=== PATIENT | male | born 1955 | race Caucasian/White ===

== ENCOUNTER → 2020-08-11 | Outpatient (CLI) | payer MEDICARE, OTHER ==
[2020-08-11 14:43] LABS: Microalb/Creat Ratio UR, Rand Unable to Calculate mg/g (0.000-30.000); Microalbumin, Random Urine <5.000 mg/L (0.000-20.000)
== END | disposition home or self-care (01) ==
LOC: LAB SHORT 09:31 → LAB EV 09:31
PROVIDERS: Family Medicine
DX: E11.69 Type 2 diabetes mellitus with other specified complication (principal)
CPT/HCPCS: 82043; 82570

== ENCOUNTER 2020-12-07 09:42 | Day surgery (SDC) | payer MEDICARE, OTHER ==
[~2020-12-07] VITALS: Ht 182.9 cm; Wt 95.4 kg
[~2020-12-07 09:42] MED LIST: CYCL10 PO; DOXA4 PO; GABA600 PO; HUMALOG KW100 UNIT/1 SC; LANTUS SOL100 UNIT/1 SC; METFORMIN ER G500 MG PO; ROSU10TA PO; Requip3 MG PO
--- NOTE | 2020-12-07 12:05 | NUR ---
12/07/20 1205 Caroline Maurice ARM PREPPED BY [facility].FELY Wbeb ARM PREPPED BY [facility].ADRIEL
== END 2020-12-07 13:35 | disposition home or self-care (01) ==
LOC: ORSCSDS 09:42
PROVIDERS: Orthopaedic Surgery
PROC: 01N40ZZ Release Ulnar Nerve, Open Approach (ICD-10-PCS; principal; 2020-12-07 11:00)
DX: G56.22 Lesion of ulnar nerve, left upper limb (principal); G56.21 Lesion of ulnar nerve, right upper limb; E11.9 Type 2 diabetes mellitus without complications; Z79.899 Other long term (current) drug therapy; M79.7 Fibromyalgia; Z79.84 Long term (current) use of oral hypoglycemic drugs
CPT/HCPCS: 82947; J0171; J0690; J1815; J2250; J2370; J2405; J2704; J3010; J7120

== ENCOUNTER → 2021-06-17 | Outpatient (CLI) | payer MEDICARE, OTHER ==
[2021-06-17 13:05] LABS: BASOPHILS ABSOLUTE AUTO 0.04 K/mm3 (0.00-0.23); BASOPHILS PERCENT AUTO 0 % (0-2); EOSINOPHILS ABSOLUTE AUTO 0.29 K/mm3 (0.00-0.68); EOSINOPHILS PERCENT AUTO 3 % (0-6); Hemoglobin 15.9 g/dL (13.5-17.5); IMMATURE GRAN ABSOLUTE AUTO 0.03 K/mm3 (0.00-0.10); IMMATURE GRAN PERCENT AUTO 0 % (0-1); LYMPHOCYTES ABSOLUTE AUTO 2.01 K/mm3 (0.84-5.20); LYMPHOCYTES PERCENT AUTO 22 % (21-46); MONOCYTES ABSOLUTE AUTO 0.73 K/mm3 (0.16-1.47); MONOCYTES PERCENT AUTO 8 % (4-13); Mean Corpuscular HGB Conc 33.1 g/dL (31.5-36.5); Mean Corpuscular Volume 91 fL (80-100); Mean Platelet Volume 11.1 fL (9.1-12.4); NEUTROPHILS ABSOLUTE AUTO 6.17 K/mm3 (1.96-9.15); NEUTROPHILS PERCENT AUTO 67 % (41-73); Platelet Count 164 K/mm3 (150-400); RDW Coefficient Variation 13.9 % (11.7-14.2); RDW Standard Deviation 46.7 fL (35.1-46.3); White Blood Cell Count 9.27 K/mm3 (4.00-11.30)
[2021-06-17 13:39] LABS: Anion Gap 6 mmol/L (6-16); Blood Urea Nitrogen 15 mg/dL (8-24); Bun/Creatinine Ratio 16.6 (12.0-20.0); CO2, Blood 25 mmol/L (21-32); Calcium, Blood 8.9 mg/dL (8.5-10.1); Chloride, Blood 107 mmol/L (98-108); Creatinine, Blood 0.91 mg/dL (0.60-1.20); Glomerular Filtration Rate >60 (60-); Glucose, Blood 161 mg/dL (70-99); Potassium, Blood 4.2 mmol/L (3.5-5.5); Sodium, Blood 138 mmol/L (136-145)
== END | disposition home or self-care (01) ==
LOC: LAB 11:57 → LAB SHORT 11:57
PROVIDERS: Orthopaedic Surgery
DX: Z01.812 Encounter for preprocedural laboratory examination (principal); M65.322 Trigger finger, left index finger
CPT/HCPCS: 36415; 80048; 83036; 85025

== ENCOUNTER 2021-06-28 10:58 | Day surgery (SDC) | payer MEDICARE, OTHER ==
[~2021-06-28] VITALS: Ht 182.9 cm; Wt 93.7 kg
== END 2021-06-28 14:52 | disposition home or self-care (01) ==
LOC: ORSCSDS 10:58
PROVIDERS: Orthopaedic Surgery
PROC: 0LN80ZZ Release Left Hand Tendon, Open Approach (ICD-10-PCS; principal; 2021-06-28 12:15)
DX: M65.322 Trigger finger, left index finger (principal); E11.9 Type 2 diabetes mellitus without complications; Z79.84 Long term (current) use of oral hypoglycemic drugs; Z79.899 Other long term (current) drug therapy
CPT/HCPCS: 82947; J0171; J0690; J2250; J2704; J3010; J7120

== ENCOUNTER → 2022-04-22 | Outpatient (CLI) | payer MEDICARE ==
[2022-04-22 11:56] LABS: Microalb/Creat Ratio UR, Rand Unable to Calculate mg/g (0.000-30.000); Microalbumin, Random Urine <5.000 mg/L (0.000-20.000)
== END | disposition home or self-care (01) ==
LOC: LAB 09:57 → LAB SHORT 09:57
PROVIDERS: Family Medicine
DX: E11.69 Type 2 diabetes mellitus with other specified complication (principal)
CPT/HCPCS: 82043; 82570

== ENCOUNTER 2022-09-30 15:49 | Inpatient (IN) | payer MEDICARE ==
[~2022-09-30] VITALS: Ht 182.9 cm; Wt 91.5 kg
[~2022-09-30 15:49] MED LIST changes: +GLUCOPHAGE1000 M1 PO; -HUMALOG KW100 UNIT/1 SC; -METFORMIN ER G500 MG PO; +ROPI.25 PO; -Requip3 MG PO
[2022-09-30 17:27] LABS: BASOPHILS ABSOLUTE AUTO 0.05 K/mm3 (0.00-0.23); BASOPHILS PERCENT AUTO 1 % (0-2); EOSINOPHILS ABSOLUTE AUTO 0.01 K/mm3 (0.00-0.68); EOSINOPHILS PERCENT AUTO 0 % (0-6); Hematocrit 40.4 % (37.0-53.0); Hemoglobin 14.5 g/dL (13.5-17.5); IMMATURE GRAN ABSOLUTE AUTO 0.07 K/mm3 (0.00-0.10); IMMATURE GRAN PERCENT AUTO 1 % (0-1); LYMPHOCYTES PERCENT AUTO 2 % (21-46); MONOCYTES ABSOLUTE AUTO 0.33 K/mm3 (0.16-1.47); MONOCYTES PERCENT AUTO 4 % (4-13); Mean Corpuscular HGB 30.5 pg (26.0-34.0); Mean Corpuscular HGB Conc 35.9 g/dL (31.5-36.5); Mean Corpuscular Volume 85 fL (80-100); Mean Platelet Volume 11.5 fL (9.1-12.4); NEUTROPHILS ABSOLUTE AUTO 8.54 K/mm3 (1.96-9.15); NEUTROPHILS PERCENT AUTO 93 % (41-73); RDW Coefficient Variation 13.2 % (11.7-14.2); RDW Standard Deviation 41.3 fL (35.1-46.3); Red Blood Cell Count 4.76 M/mm3 (4.30-5.90)
[2022-09-30 17:47] LABS: Platelet Count 45 K/mm3 (150-400)
[2022-09-30 17:51] LABS: Albumin/Globulin Ratio 0.8 (0.8-1.8); Bilirubin, Total 3.4 mg/dL (0.1-1.0); Bun/Creatinine Ratio 40.2 (12.0-20.0); Calcium, Blood 8.5 mg/dL (8.5-10.1); Creatinine, Blood 1.07 mg/dL (0.60-1.20); Globulin, Blood 3.9 g/dL (2.2-4.0); Potassium, Blood 3.9 mmol/L (3.5-5.5); Total Protein, Blood 6.9 g/dL (6.4-8.2)
[2022-09-30 18:07] LABS: Influenza A, PCR NEGATIVE (NEGATIVE); Influenza B, PCR NEGATIVE (NEGATIVE); Resp Syncytial Virus, PCR NEGATIVE (NEGATIVE); SARS-Cov-2 (COVID-19) PCR, MMC NEGATIVE (NEGATIVE)
[2022-09-30 20:02] LABS: Source, Urine Clean Catch
[2022-09-30 20:11] LABS: Appearance, Urine Turbid (Clear); Blood, Urine 5+ (Neg); Color, Urine Brown (P-Yellow); Glucose Qualitative, Urine 4+ (Neg); Ketones, Urine 3+ (Neg); Leukocyte Esterase, Urine 1+ (Neg); Nitrite, Urine Pos (Neg); Protein, Urine 3+ (Neg); Urobilinogen, Urine 3+ (Normal)
[2022-09-30 20:21] LABS: Bilirubin, Urine 2+ (Neg)
[2022-09-30 20:22] LABS: Squamous Epithelial Cells Rare /hpf (Few)
[2022-09-30 20:23] LABS: Bacteria Many /hpf
[2022-10-01 01:07] LABS: Hematocrit 35.2 % (37.0-53.0); Hemoglobin 12.9 g/dL (13.5-17.5); Mean Corpuscular HGB 31.2 pg (26.0-34.0); Mean Corpuscular HGB Conc 36.6 g/dL (31.5-36.5); Mean Corpuscular Volume 85 fL (80-100); Mean Platelet Volume 11.9 fL (9.1-12.4); RDW Coefficient Variation 13.2 % (11.7-14.2); RDW Standard Deviation 41.1 fL (35.1-46.3); Red Blood Cell Count 4.14 M/mm3 (4.30-5.90); White Blood Cell Count 5.72 K/mm3 (4.00-11.30)
[2022-10-01 01:27] LABS: Albumin, Blood 2.3 g/dL (3.4-5.0); Albumin/Globulin Ratio 0.7 (0.8-1.8); Bilirubin, Total 2.7 mg/dL (0.1-1.0); Bun/Creatinine Ratio 40.2 (12.0-20.0); Calcium, Blood 7.5 mg/dL (8.5-10.1); Creatinine, Blood 1.32 mg/dL (0.60-1.20); Globulin, Blood 3.5 g/dL (2.2-4.0); Potassium, Blood 3.8 mmol/L (3.5-5.5); Total Protein, Blood 5.8 g/dL (6.4-8.2)
[2022-10-01 03:02] LABS: Platelet Count 29 K/mm3 (150-400)
[2022-10-01 03:55] LABS: BAND PERCENT MAN 6 % (0-8); BASOPHILS PERCENT MAN 0 % (0-2); EOSINOPHILS PERCENT MAN 0 % (0-6); LYMPHOCYTES ABSOLUTE MAN 0.11 K/mm3 (0.84-5.20); LYMPHOCYTES PERCENT MAN 2 % (21-46); MONOCYTES ABSOLUTE MAN 0.28 K/mm3 (0.16-1.47); MONOCYTES PERCENT MAN 5 % (4-13); NEUTROPHILS ABSOLUTE MAN 5.31 K/mm3 (1.96-9.15); SEG NEUTROPHILS PERCENT MAN 87 % (41-73); TOTAL CELLS COUNTED 100
--- NOTE | 2022-10-01 07:25 | NUR ---
PT ADMITTED AFTER MIDNIGHT- PT A&O X 4, PT REPORTS HAVING SEVERE SIATIC NERVE PAIN - ENCOURAGED PT TO CALL IF NEED ASSISTANCE- PT USED CALL LIGHT APPROPRIATELY T/O NIGHT- HAVE TYLENOL FOR BACK PAIN AND REQUIP FOR RESTLESS LEG SYNDROME- 0140 LACTIC ACID AT 2.3 CALLED FROM LAB- SEE NOTES - PLATLETS ALSO CALLED CRITICAL AT 29 - SEE NOTE- PT AMBULATED THIS AM TO BR WITH 2SBA AND FWW- PT TOLERATED WELL- IV INFUSING AT 150ML/HR- REPORT TO XIMENA BELTRÁN
[2022-10-01 14:19] LABS: Hematocrit 37.2 % (37.0-53.0); Hemoglobin 13.4 g/dL (13.5-17.5); Mean Corpuscular HGB 30.7 pg (26.0-34.0); Mean Corpuscular Volume 85 fL (80-100); Mean Platelet Volume 11.9 fL (9.1-12.4); RDW Coefficient Variation 13.4 % (11.7-14.2); Red Blood Cell Count 4.37 M/mm3 (4.30-5.90); White Blood Cell Count 5.22 K/mm3 (4.00-11.30)
[2022-10-01 14:22] LABS: Platelet Count 21 K/mm3 (150-400)
[2022-10-01 14:41] LABS: Bun/Creatinine Ratio 52.6 (12.0-20.0); Calcium, Blood 7.8 mg/dL (8.5-10.1); Creatinine, Blood 1.14 mg/dL (0.60-1.20); Potassium, Blood 3.6 mmol/L (3.5-5.5)
[2022-10-01 14:46] LABS: BAND PERCENT MAN 8 % (0-8); BASOPHILS PERCENT MAN 0 % (0-2); EOSINOPHILS PERCENT MAN 0 % (0-6); LYMPHOCYTES ABSOLUTE MAN 0.15 K/mm3 (0.84-5.20); LYMPHOCYTES PERCENT MAN 3 % (21-46); MONOCYTES ABSOLUTE MAN 0.05 K/mm3 (0.16-1.47); MONOCYTES PERCENT MAN 1 % (4-13); NEUTROPHILS ABSOLUTE MAN 5.01 K/mm3 (1.96-9.15); SEG NEUTROPHILS PERCENT MAN 88 % (41-73); TOTAL CELLS COUNTED 100
--- NOTE | 2022-10-01 16:13 | NUR ---
Received report from ongoing nurse. Report given at bedside. Pt resting comfortably in bed.Pt alert and orientedx4. 0900 at the bedside giving patient a bed bath. 0930: Md at bedside. 1000: Pt states that he's in pain lower back pain. 1100: Pt took a shower 1200; Lunch given/ check emar for dosage of insulin. 1300- 1600 Pt resting comfortably, but also complaining of back pain. Check emar for medication given. at bedside. 1615: Pt reporting that pain meds are not working. will give md a call to see if he can give something else.
[2022-10-02 02:07] LABS: Creatinine, Urine Random 54.2 mg/dL (27.00-270.00)
[2022-10-02 06:00] LABS: BASOPHILS ABSOLUTE AUTO 0.04 K/mm3 (0.00-0.23); BASOPHILS PERCENT AUTO 1 % (0-2); EOSINOPHILS PERCENT AUTO 0 % (0-6); Hematocrit 38.2 % (37.0-53.0); Hemoglobin 13.9 g/dL (13.5-17.5); IMMATURE GRAN ABSOLUTE AUTO 0.05 K/mm3 (0.00-0.10); IMMATURE GRAN PERCENT AUTO 1 % (0-1); LYMPHOCYTES ABSOLUTE AUTO 0.38 K/mm3 (0.84-5.20); LYMPHOCYTES PERCENT AUTO 5 % (21-46); MONOCYTES ABSOLUTE AUTO 0.52 K/mm3 (0.16-1.47); MONOCYTES PERCENT AUTO 7 % (4-13); Mean Corpuscular HGB 30.4 pg (26.0-34.0); Mean Corpuscular HGB Conc 36.4 g/dL (31.5-36.5); Mean Corpuscular Volume 84 fL (80-100); NEUTROPHILS ABSOLUTE AUTO 6.51 K/mm3 (1.96-9.15); NEUTROPHILS PERCENT AUTO 87 % (41-73); RDW Coefficient Variation 13.2 % (11.7-14.2); RDW Standard Deviation 40.7 fL (35.1-46.3); Red Blood Cell Count 4.57 M/mm3 (4.30-5.90)
[2022-10-02 06:05] LABS: Platelet Count 17 K/mm3 (150-400)
[2022-10-02 06:16] LABS: Albumin, Blood 2.2 g/dL (3.4-5.0); Albumin/Globulin Ratio 0.6 (0.8-1.8); Bilirubin, Total 2.7 mg/dL (0.1-1.0); Bun/Creatinine Ratio 63.3 (12.0-20.0); Calcium, Blood 7.8 mg/dL (8.5-10.1); Creatinine, Blood 0.89 mg/dL (0.60-1.20); Globulin, Blood 3.8 g/dL (2.2-4.0); Potassium, Blood 3.7 mmol/L (3.5-5.5)
--- NOTE | 2022-10-02 06:26 | NUR ---
CALLED DR BARRY REGARDING CRITICAL PLT OF 17. NO NEW ORDERS GIVEN.
--- NOTE | 2022-10-02 07:24 | NUR ---
PATIENT ALERT AND ORIENTED, INDEPENDENT, ON ROOM AIR, COMPLAINED OF PAIN X1 AND MEDICATED. NO EVENTS OVERNIGHT
[2022-10-02 12:47] LABS: Hematocrit 35.9 % (37.0-53.0); Hemoglobin 13.2 g/dL (13.5-17.5); Mean Corpuscular HGB 30.9 pg (26.0-34.0); Mean Corpuscular HGB Conc 36.8 g/dL (31.5-36.5); Mean Corpuscular Volume 84 fL (80-100); RDW Coefficient Variation 13.4 % (11.7-14.2); RDW Standard Deviation 41.4 fL (35.1-46.3); Red Blood Cell Count 4.27 M/mm3 (4.30-5.90); White Blood Cell Count 7.53 K/mm3 (4.00-11.30)
[2022-10-02 12:56] LABS: Platelet Count 15 K/mm3 (150-400)
[2022-10-02 13:07] LABS: Prothrombin Time Results 10.5 Sec (9.7-11.5)
[2022-10-02 13:19] LABS: BASOPHILS PERCENT MAN 0 % (0-2); EOSINOPHILS PERCENT MAN 0 % (0-6); LYMPHOCYTES ABSOLUTE MAN 0.52 K/mm3 (0.84-5.20); LYMPHOCYTES PERCENT MAN 7 % (21-46); MONOCYTES ABSOLUTE MAN 0.07 K/mm3 (0.16-1.47); MONOCYTES PERCENT MAN 1 % (4-13); NEUTROPHILS ABSOLUTE MAN 6.92 K/mm3 (1.96-9.15); SEG NEUTROPHILS PERCENT MAN 92 % (41-73); TOTAL CELLS COUNTED 100
--- NOTE | 2022-10-03 06:26 | NUR ---
PATIENT COULD NOT GET COMFORTABLE THROUGHOUT SHIFT. REPOSITIONED PATIENT CONTINUOUSLY AND ADDED EGG CRATE TO MATTRESS TO HELP WITH COMFORT. ALERT AND ORIENTED, 1 ASSIST, URINAL, ROOM AIR, ADA DIET, 20 RIGHT WRIST. NO EVENTS OVERNIGHT
[2022-10-03 07:02] LABS: Albumin/Globulin Ratio 0.6 (0.8-1.8); Bilirubin, Total 4.9 mg/dL (0.1-1.0); Bun/Creatinine Ratio 53.1 (12.0-20.0); Calcium, Blood 7.8 mg/dL (8.5-10.1); Creatinine, Blood 0.77 mg/dL (0.60-1.20); Globulin, Blood 3.4 g/dL (2.2-4.0); Potassium, Blood 3.4 mmol/L (3.5-5.5); Total Protein, Blood 5.4 g/dL (6.4-8.2)
[2022-10-03 07:13] LABS: BASOPHILS ABSOLUTE AUTO 0.03 K/mm3 (0.00-0.23); BASOPHILS PERCENT AUTO 0 % (0-2); EOSINOPHILS ABSOLUTE AUTO 0.01 K/mm3 (0.00-0.68); EOSINOPHILS PERCENT AUTO 0 % (0-6); Hematocrit 34.6 % (37.0-53.0); Hemoglobin 12.7 g/dL (13.5-17.5); IMMATURE GRAN ABSOLUTE AUTO 0.12 K/mm3 (0.00-0.10); IMMATURE GRAN PERCENT AUTO 1 % (0-1); LYMPHOCYTES ABSOLUTE AUTO 0.61 K/mm3 (0.84-5.20); LYMPHOCYTES PERCENT AUTO 7 % (21-46); MONOCYTES ABSOLUTE AUTO 0.91 K/mm3 (0.16-1.47); MONOCYTES PERCENT AUTO 10 % (4-13); Mean Corpuscular HGB 30.5 pg (26.0-34.0); Mean Corpuscular HGB Conc 36.7 g/dL (31.5-36.5); Mean Corpuscular Volume 83 fL (80-100); NEUTROPHILS ABSOLUTE AUTO 7.24 K/mm3 (1.96-9.15); NEUTROPHILS PERCENT AUTO 81 % (41-73); RDW Coefficient Variation 13.5 % (11.7-14.2); RDW Standard Deviation 41.1 fL (35.1-46.3); Red Blood Cell Count 4.17 M/mm3 (4.30-5.90); White Blood Cell Count 8.92 K/mm3 (4.00-11.30)
[2022-10-03 07:18] LABS: Platelet Count 23 K/mm3 (150-400)
[2022-10-03 07:59] LABS: Alanine Aminotransfer (ALT/SGP 71 U/L (12-78); Aspartate Aminotrans (AST/SGOT 77 U/L (12-37); Cholesterol 98 mg/dL (50-200); Triglycerides 291 mg/dL (30-160)
[2022-10-03 08:09] LABS: HIV AB/P24 AG SCREEN Non Reactive (Non Reactive)
--- NOTE | 2022-10-03 18:27 | NUR ---
Received report from ongoing nurse. Pt awake and axox4. Pt states he's having trouble getting comfortable. Found a recliner for patient/ patient still not comfortable. Pain medication given per emar. Pt left for lumbar/spine imaging. Shoulder/hand xray ordered. Family at bedside. Pt resting comfortably.
--- NOTE | 2022-10-04 04:34 | NUR ---
CALLED DR KEENAN ON 08/03 @1991 TO UPDATE ON PATIENTS PAIN THAT IS NOT CONTROLLED WITH TYLENOL AND ROXICODONE. NEW ORDERS GIVEN FOR FENTANYL IV SEVERE PAIN
[2022-10-04 06:22] LABS: Source, Urine Clean Catch
[2022-10-04 06:29] LABS: Appearance, Urine Clear (Clear); Blood, Urine 3+ (Neg); Color, Urine Yellow (P-Yellow); Glucose Qualitative, Urine 4+ (Neg); Ketones, Urine 1+ (Neg); Leukocyte Esterase, Urine Neg (Neg); Nitrite, Urine Neg (Neg); Protein, Urine 2+ (Neg); Urobilinogen, Urine 2+ (Normal); pH, Urine 6.5 (5.0-8.0)
[2022-10-04 06:29] LABS: BASOPHILS ABSOLUTE AUTO 0.04 K/mm3 (0.00-0.23); BASOPHILS PERCENT AUTO 0 % (0-2); EOSINOPHILS ABSOLUTE AUTO 0.02 K/mm3 (0.00-0.68); EOSINOPHILS PERCENT AUTO 0 % (0-6); Hematocrit 33.6 % (37.0-53.0); Hemoglobin 12.3 g/dL (13.5-17.5); IMMATURE GRAN ABSOLUTE AUTO 0.24 K/mm3 (0.00-0.10); IMMATURE GRAN PERCENT AUTO 2 % (0-1); LYMPHOCYTES ABSOLUTE AUTO 0.79 K/mm3 (0.84-5.20); LYMPHOCYTES PERCENT AUTO 7 % (21-46); MONOCYTES PERCENT AUTO 9 % (4-13); Mean Corpuscular HGB 30.3 pg (26.0-34.0); Mean Corpuscular HGB Conc 36.6 g/dL (31.5-36.5); Mean Corpuscular Volume 83 fL (80-100); NEUTROPHILS PERCENT AUTO 82 % (41-73); RDW Coefficient Variation 13.7 % (11.7-14.2); RDW Standard Deviation 41.3 fL (35.1-46.3); Red Blood Cell Count 4.06 M/mm3 (4.30-5.90); White Blood Cell Count 12.19 K/mm3 (4.00-11.30)
--- NOTE | 2022-10-04 06:35 | NUR ---
PATIENT HAVING UNCONTROLLABLE PAIN WITH YODIT AND TYLENOL. RECEIVED ORDERS FOR FENTANYL IV MOD TO SEVERE PAIN. PATIENT PAIN CONTROLLED WITH FENTANYL. ALERT AND ORIENTED, ROOM AIR, URINAL, URINE SAMPLE SENT. NO EVENTS OVERNIGHT
[2022-10-04 07:02] LABS: Albumin, Blood 1.9 g/dL (3.4-5.0); Albumin/Globulin Ratio 0.5 (0.8-1.8); Bilirubin, Total 6.4 mg/dL (0.1-1.0); Calcium, Blood 7.7 mg/dL (8.5-10.1); Creatinine, Blood 0.64 mg/dL (0.60-1.20); Globulin, Blood 3.5 g/dL (2.2-4.0); Potassium, Blood 3.5 mmol/L (3.5-5.5); Total Protein, Blood 5.4 g/dL (6.4-8.2)
[2022-10-04 07:10] LABS: HBSAG SCREEN Negative (Negative); HCV AB <0.1 (0.0-0.9); HEP A AB, IGM Negative (Negative); HEP B CORE AB, TOT Negative (Negative)
[2022-10-04 07:27] LABS: Mean Platelet Volume 13.7 fL (9.1-12.4); Platelet Count 45 K/mm3 (150-400)
[2022-10-04 07:49] LABS: Bilirubin, Urine 1+ (Neg)
[2022-10-04 08:06] LABS: Bacteria Mod /hpf; Mucus Not Seen (0-Heavy); Squamous Epithelial Cells Few /hpf (Few); White Blood Cells, Urine 0-2 /hpf (0-5)
[2022-10-04 09:53] LABS: Bilirubin, Direct 4.9 mg/dL (0.0-0.3); Bilirubin, Indirect 1.2 mg/dL (0.1-0.7); Bilirubin, Total 6.1 mg/dL (0.1-1.0)
[2022-10-04 16:13] LABS: Percent Saturation 27.6 % (20.0-50.0)
[2022-10-05 05:59] LABS: Hematocrit 33.3 % (37.0-53.0); Hemoglobin 12.3 g/dL (13.5-17.5); Mean Corpuscular HGB 30.4 pg (26.0-34.0); Mean Corpuscular HGB Conc 36.9 g/dL (31.5-36.5); Mean Corpuscular Volume 82 fL (80-100); Mean Platelet Volume 12.1 fL (9.1-12.4); Platelet Count 102 K/mm3 (150-400); RDW Coefficient Variation 13.6 % (11.7-14.2); RDW Standard Deviation 40.9 fL (35.1-46.3); Red Blood Cell Count 4.04 M/mm3 (4.30-5.90); White Blood Cell Count 16.89 K/mm3 (4.00-11.30)
[2022-10-05 06:16] LABS: Albumin, Blood 1.8 g/dL (3.4-5.0); Albumin/Globulin Ratio 0.5 (0.8-1.8); Bilirubin, Total 4.8 mg/dL (0.1-1.0); Bun/Creatinine Ratio 37.5 (12.0-20.0); Calcium, Blood 7.8 mg/dL (8.5-10.1); Creatinine, Blood 0.61 mg/dL (0.60-1.20); Globulin, Blood 3.6 g/dL (2.2-4.0); Potassium, Blood 3.4 mmol/L (3.5-5.5); Total Protein, Blood 5.4 g/dL (6.4-8.2)
[2022-10-05 06:23] LABS: BAND PERCENT MAN 9 % (0-8); BASOPHILS PERCENT MAN 0 % (0-2); EOSINOPHILS PERCENT MAN 0 % (0-6); LYMPHOCYTES ABSOLUTE MAN 1.35 K/mm3 (0.84-5.20); LYMPHOCYTES PERCENT MAN 8 % (21-46); METAMYELOCYTE ABSOLUTE MAN 0.16 K/mm3 (0.00-0.00); METAMYELOCYTE PERCENT MAN 1 % (0-0); MONOCYTES ABSOLUTE MAN 1.18 K/mm3 (0.16-1.47); MONOCYTES PERCENT MAN 7 % (4-13); NEUTROPHILS ABSOLUTE MAN 14.18 K/mm3 (1.96-9.15); SEG NEUTROPHILS PERCENT MAN 75 % (41-73); TOTAL CELLS COUNTED 100
--- NOTE | 2022-10-05 06:50 | NUR ---
PATIENT IN MODERATE TO SEVERE PAIN THROUGHOUT SHIFT. PATIENT IS NOT ABLE TO ROTATE IN BED OR SIT ON SIDE OF BED WITHOUT A TWO PERSON ASSIST. ALERT AND ORIENTED, ROOM AIR, 20 RFA, NO TELE. NO EVENTS OVERNIGT
--- NOTE | 2022-10-05 14:01 | NUR ---
Spoke with imaging she will elias with updates and times for biopsy and ct of chest/
--- NOTE | 2022-10-05 19:19 | NUR ---
Pt resting comfortably in bed. Made aware that multiple testing will be done today/ some repeats during this time. Pt at bedside. Pt asleep most of the day. Will continue to monitor.
--- NOTE | 2022-10-06 01:41 | NUR ---
SPOKE WITH DR ROSARIO ([facility]) ON 10/05/22 @ 2044 REGARDING PATIENTS URINARY RETENTION AND MOBILITY ISSUES DUE TO PAIN. PATIENT IS REQUESTING A WOODS CATHETER BECAUSE HE IS UNABLE TO MOVE BECAUSE OF PAIN. CT ABDOMEN SHOWED URINARY RETENTION. WOODS INSERTED AND URINE WAS TEA IN COLOR AND INITIAL OUTPUT WAS 800 CC.
[2022-10-06 04:42] LABS: Hematocrit 31.7 % (37.0-53.0); Hemoglobin 11.4 g/dL (13.5-17.5); Mean Corpuscular HGB 30.1 pg (26.0-34.0); Mean Corpuscular Volume 84 fL (80-100); Mean Platelet Volume 10.9 fL (9.1-12.4); Platelet Count 170 K/mm3 (150-400); RDW Coefficient Variation 13.8 % (11.7-14.2); RDW Standard Deviation 42.5 fL (35.1-46.3); Red Blood Cell Count 3.79 M/mm3 (4.30-5.90); White Blood Cell Count 22.18 K/mm3 (4.00-11.30)
[2022-10-06 05:49] LABS: BAND PERCENT MAN 6 % (0-8); BASOPHILS PERCENT MAN 0 % (0-2); EOSINOPHILS ABSOLUTE MAN 0.22 K/mm3 (0.00-0.68); EOSINOPHILS PERCENT MAN 1 % (0-6); LYMPHOCYTES PERCENT MAN 5 % (21-46); MONOCYTES ABSOLUTE MAN 2.21 K/mm3 (0.16-1.47); MONOCYTES PERCENT MAN 10 % (4-13); MYELOCYTE ABSOLUTE MAN 0.22 K/mm3 (0.00-0.00); MYELOCYTE PERCENT MAN 1 % (0-0); SEG NEUTROPHILS PERCENT MAN 77 % (41-73); TOTAL CELLS COUNTED 100
[2022-10-06 06:27] LABS: Albumin, Blood 1.6 g/dL (3.4-5.0); Albumin/Globulin Ratio 0.4 (0.8-1.8); Bilirubin, Total 3.3 mg/dL (0.1-1.0); Bun/Creatinine Ratio 28.5 (12.0-20.0); Calcium, Blood 7.8 mg/dL (8.5-10.1); Creatinine, Blood 0.56 mg/dL (0.60-1.20); Globulin, Blood 3.9 g/dL (2.2-4.0); Potassium, Blood 3.6 mmol/L (3.5-5.5); Total Protein, Blood 5.5 g/dL (6.4-8.2)
--- NOTE | 2022-10-06 18:32 | NUR ---
PATIENT A/OX4, AT BEDSIDE FOR MOST OF THE DAY. VSS, ON RA. REPORTS SEVERE PAIN TO LOWER BACK AND LEGS, UNABLE TO GET OUT OF BED OR REPOSITION HIMSELF D/T PAIN. MRI FOR LOWER BACK CANCELED TODAY BECAUSE PATIENT UNABLE TO TOLERATE. REQUIRING FREQUENT REPOSITIONING. ABX REGIMEN CHANGED TODAY, WBC'S CONTINUE TO CLIMB. APPETITE REMAINS POOR. ACHS BLOOD SUGARS, COVERAGE PER SS. WOODS TO GRAVITY. NS @ 125ML/HR INFUSING.
[2022-10-07 05:34] LABS: Hematocrit 29.5 % (37.0-53.0); Hemoglobin 10.5 g/dL (13.5-17.5); Mean Corpuscular HGB 30.4 pg (26.0-34.0); Mean Corpuscular HGB Conc 35.6 g/dL (31.5-36.5); Mean Corpuscular Volume 86 fL (80-100); Mean Platelet Volume 10.6 fL (9.1-12.4); Platelet Count 203 K/mm3 (150-400); RDW Standard Deviation 43.7 fL (35.1-46.3); Red Blood Cell Count 3.45 M/mm3 (4.30-5.90); White Blood Cell Count 24.18 K/mm3 (4.00-11.30)
--- NOTE | 2022-10-07 07:08 | NUR ---
PT RESTING IN BED NO S/S OF ACUTE DISTRESS, SAFETY MEASURES IN PLACE REPORT GIVEN TO ON COMING NURSE
[2022-10-07 07:14] LABS: BAND PERCENT MAN 2 % (0-8); BASOPHILS PERCENT MAN 0 % (0-2); EOSINOPHILS ABSOLUTE MAN 0.48 K/mm3 (0.00-0.68); EOSINOPHILS PERCENT MAN 2 % (0-6); LYMPHOCYTES ABSOLUTE MAN 1.69 K/mm3 (0.84-5.20); LYMPHOCYTES PERCENT MAN 7 % (21-46); METAMYELOCYTE ABSOLUTE MAN 0.24 K/mm3 (0.00-0.00); METAMYELOCYTE PERCENT MAN 1 % (0-0); MONOCYTES ABSOLUTE MAN 0.48 K/mm3 (0.16-1.47); MONOCYTES PERCENT MAN 2 % (4-13); MYELOCYTE ABSOLUTE MAN 0.24 K/mm3 (0.00-0.00); MYELOCYTE PERCENT MAN 1 % (0-0); NEUTROPHILS ABSOLUTE MAN 21.03 K/mm3 (1.96-9.15); SEG NEUTROPHILS PERCENT MAN 85 % (41-73); TOTAL CELLS COUNTED 100
[2022-10-07 08:37] LABS: Albumin, Blood 1.5 g/dL (3.4-5.0); Albumin/Globulin Ratio 0.3 (0.8-1.8); Bilirubin, Total 2.7 mg/dL (0.1-1.0); Calcium, Blood 7.8 mg/dL (8.5-10.1); Creatinine, Blood 0.62 mg/dL (0.60-1.20); Globulin, Blood 4.3 g/dL (2.2-4.0); Magnesium, Blood 1.9 mg/dL (1.6-2.4); Potassium, Blood 3.7 mmol/L (3.5-5.5); Total Protein, Blood 5.8 g/dL (6.4-8.2)
[2022-10-07 11:49] LABS: International Normalized Ratio 1.19; Prothrombin Time Results 12.4 Sec (9.7-11.5)
[2022-10-07 17:10] LABS: ANA DIRECT Negative (Negative); ANTI-DNA (DS) AB QN <1 IU/mL (0-9); RNP ANTIBODIES <0.2 AI (0.0-0.9); SJOGREN'S ANTI-SS-A <0.2 AI (0.0-0.9); SJOGREN'S ANTI-SS-B <0.2 AI (0.0-0.9); SMITH ANTIBODIES <0.2 AI (0.0-0.9)
--- NOTE | 2022-10-07 18:34 | NUR ---
PATIENT A/OX4, FORGETFUL AT TIMES. VSS, ON RA. PAIN SEEMED TO IMPROVE SLIGHTLY TODAY. PATIENT ABLE TO LAY ON HIS BACK WHICH HAD BEEN VERY PAINFUL YESTERDAY AND THIS MORNING. OXYCODONE USED TO TREAT HIP/LEG PAIN, NO BREAKTHROUGH MEDICATION NEEDED TODAY. TURNING Q2 HOURS. SKIN INTACT. NS INFUSING AT 125ML/HR. APPEITE POOR, PATIENT IS SUPPLEMENTING WITH ENSURE. ACHS BLOOD SUAGRS, COVERAGE PER SS. WOODS TO GRAVITY, CLEAR ROME URINE OUTPUT. AT BEDSIDE FOR MOST OF THE DAY ASSISTING WITH CARE. CALM AND COOPERATIVE WITH CARE, ABLE TO MAKE NEEDS KNOWN.
[2022-10-08 05:28] LABS: EOSINOPHILS ABSOLUTE AUTO 0.18 K/mm3 (0.00-0.68); EOSINOPHILS PERCENT AUTO 1 % (0-6); Hemoglobin 11.1 g/dL (13.5-17.5); IMMATURE GRAN ABSOLUTE AUTO 1.28 K/mm3 (0.00-0.10); IMMATURE GRAN PERCENT AUTO 5 % (0-1); LYMPHOCYTES ABSOLUTE AUTO 1.98 K/mm3 (0.84-5.20); LYMPHOCYTES PERCENT AUTO 7 % (21-46); MONOCYTES ABSOLUTE AUTO 2.08 K/mm3 (0.16-1.47); MONOCYTES PERCENT AUTO 7 % (4-13); Mean Corpuscular HGB 30.4 pg (26.0-34.0); Mean Corpuscular HGB Conc 34.7 g/dL (31.5-36.5); Mean Corpuscular Volume 88 fL (80-100); NEUTROPHILS ABSOLUTE AUTO 22.62 K/mm3 (1.96-9.15); NEUTROPHILS PERCENT AUTO 81 % (41-73); Platelet Count 253 K/mm3 (150-400); RDW Coefficient Variation 14.2 % (11.7-14.2); RDW Standard Deviation 45.9 fL (35.1-46.3); Red Blood Cell Count 3.65 M/mm3 (4.30-5.90); White Blood Cell Count 28.15 K/mm3 (4.00-11.30)
[2022-10-08 05:35] LABS: Alanine Aminotransfer (ALT/SGP 53 U/L (12-78); Albumin, Blood 1.4 g/dL (3.4-5.0); Albumin/Globulin Ratio 0.3 (0.8-1.8); Alk Phos 287 U/L (50-136); Anion Gap 8 mmol/L (6-16); Aspartate Aminotrans (AST/SGOT 65 U/L (12-37); Bilirubin, Total 2.4 mg/dL (0.1-1.0); Blood Urea Nitrogen 15 mg/dL (8-24); Bun/Creatinine Ratio 22.6 (12.0-20.0); CO2, Blood 24 mmol/L (21-32); Calcium, Blood 7.6 mg/dL (8.5-10.1); Chloride, Blood 102 mmol/L (98-108); Creatinine, Blood 0.66 mg/dL (0.60-1.20); Globulin, Blood 4.9 g/dL (2.2-4.0); Glomerular Filtration Rate 102 (60-); Glucose, Blood 76 mg/dL (70-99); Phosphorus, Blood 2.9 mg/dL (2.5-4.9); Potassium, Blood 3.6 mmol/L (3.5-5.5); Sodium, Blood 134 mmol/L (136-145); Total Protein, Blood 6.3 g/dL (6.4-8.2); Vancomycin, Trough 13.8 ug/mL (5.0-10.0)
[2022-10-08 07:03] LABS: BASOPHILS ABSOLUTE AUTO 0.01 K/mm3 (0.00-0.23); BASOPHILS PERCENT AUTO 0 % (0-2)
[2022-10-08 09:10] LABS: ACTIN (SMOOTH MUSCLE) ANTIBODY 8 Units (0-19); MITOCHONDRIAL (M2) ANTIBODY <20.0 Units (0.0-20.0)
--- NOTE | 2022-10-08 18:39 | NUR ---
PATIENT A/OX4, TURNING Q2 HOURS TODAY. UNABLE TO GET OOB D/T TO BLE PAIN AND WEAKNESS. WAS ABLE TO DO SOME EXERCISES IN BED WITH PT TODAY AND ALSO DID SLIGHTLY BETTER WITH REPOSITIONING. OXCODONE USED TO TREAT PAIN Q4 HOURS, ROBAXIN GIVEN X1 TO HELP WITH MUSCLE SPASMS, BUT UNFORTUNATELY DID NOT HAVE MUCH RELIEF. VSS, ON RA. PLEASANT AND COOPERATIVE WITH CARE. AT BEDSIDE FOR MOST OF THE DAY. NO NEW CONCERNS THIS SHIFT.
[2022-10-09 05:53] LABS: BASOPHILS ABSOLUTE AUTO 0.05 K/mm3 (0.00-0.23); BASOPHILS PERCENT AUTO 0 % (0-2); EOSINOPHILS PERCENT AUTO 1 % (0-6); Hematocrit 31.1 % (37.0-53.0); Hemoglobin 10.8 g/dL (13.5-17.5); IMMATURE GRAN ABSOLUTE AUTO 0.52 K/mm3 (0.00-0.10); IMMATURE GRAN PERCENT AUTO 2 % (0-1); LYMPHOCYTES ABSOLUTE AUTO 1.42 K/mm3 (0.84-5.20); LYMPHOCYTES PERCENT AUTO 6 % (21-46); MONOCYTES ABSOLUTE AUTO 1.11 K/mm3 (0.16-1.47); MONOCYTES PERCENT AUTO 5 % (4-13); Mean Corpuscular HGB 30.5 pg (26.0-34.0); Mean Corpuscular HGB Conc 34.7 g/dL (31.5-36.5); Mean Corpuscular Volume 88 fL (80-100); Mean Platelet Volume 10.6 fL (9.1-12.4); NEUTROPHILS ABSOLUTE AUTO 19.32 K/mm3 (1.96-9.15); NEUTROPHILS PERCENT AUTO 85 % (41-73); Platelet Count 252 K/mm3 (150-400); RDW Coefficient Variation 14.3 % (11.7-14.2); RDW Standard Deviation 45.5 fL (35.1-46.3); Red Blood Cell Count 3.54 M/mm3 (4.30-5.90); White Blood Cell Count 22.62 K/mm3 (4.00-11.30)
[2022-10-09 06:20] LABS: Albumin, Blood 1.4 g/dL (3.4-5.0); Albumin/Globulin Ratio 0.3 (0.8-1.8); Bilirubin, Total 1.7 mg/dL (0.1-1.0); Bun/Creatinine Ratio 25.3 (12.0-20.0); Calcium, Blood 8.2 mg/dL (8.5-10.1); Creatinine, Blood 0.63 mg/dL (0.60-1.20); Globulin, Blood 4.8 g/dL (2.2-4.0); Potassium, Blood 3.9 mmol/L (3.5-5.5); Total Protein, Blood 6.2 g/dL (6.4-8.2)
--- NOTE | 2022-10-09 18:22 | NUR ---
ALERT AND ORIENTED, MAKES NEEDS KNOWN, FAMILY HELPFUL WITH CARE, PATIENT ENCOURAGED TO SIT STRAIGHTER FOR FOOD AND FLUIDS, WOODS TO GRAVITY, SPASTIC MOVEMENTS IN KAEN ARMS AT TIMES, RIGHT LEG, LEFT SHOULDER, BACK INCREASED PAIN WITH REPOSITIONING, REPOSITIONED EVERY2 HOURS. AT BEDSIDE, CALL LIGHT WITH IN REACH, NO ACUTE CHANGES WILL RELAY TO PM RN
[2022-10-10 06:10] LABS: BASOPHILS ABSOLUTE AUTO 0.03 K/mm3 (0.00-0.23); BASOPHILS PERCENT AUTO 0 % (0-2); EOSINOPHILS ABSOLUTE AUTO 0.15 K/mm3 (0.00-0.68); EOSINOPHILS PERCENT AUTO 1 % (0-6); Hematocrit 26.7 % (37.0-53.0); Hemoglobin 9.5 g/dL (13.5-17.5); IMMATURE GRAN ABSOLUTE AUTO 0.27 K/mm3 (0.00-0.10); IMMATURE GRAN PERCENT AUTO 1 % (0-1); LYMPHOCYTES ABSOLUTE AUTO 1.29 K/mm3 (0.84-5.20); LYMPHOCYTES PERCENT AUTO 6 % (21-46); MONOCYTES ABSOLUTE AUTO 1.24 K/mm3 (0.16-1.47); MONOCYTES PERCENT AUTO 6 % (4-13); Mean Corpuscular HGB 30.5 pg (26.0-34.0); Mean Corpuscular HGB Conc 35.6 g/dL (31.5-36.5); Mean Corpuscular Volume 86 fL (80-100); Mean Platelet Volume 9.9 fL (9.1-12.4); NEUTROPHILS PERCENT AUTO 85 % (41-73); Platelet Count 258 K/mm3 (150-400); RDW Coefficient Variation 14.2 % (11.7-14.2); RDW Standard Deviation 43.9 fL (35.1-46.3); Red Blood Cell Count 3.11 M/mm3 (4.30-5.90); White Blood Cell Count 20.08 K/mm3 (4.00-11.30)
[2022-10-10 06:30] LABS: Albumin, Blood 1.3 g/dL (3.4-5.0); Albumin/Globulin Ratio 0.3 (0.8-1.8); Bilirubin, Total 1.5 mg/dL (0.1-1.0); Bun/Creatinine Ratio 23.9 (12.0-20.0); Creatinine, Blood 0.71 mg/dL (0.60-1.20); Globulin, Blood 4.8 g/dL (2.2-4.0); Potassium, Blood 3.9 mmol/L (3.5-5.5); Total Protein, Blood 6.1 g/dL (6.4-8.2)
[2022-10-10] MEDS ORDERED: Cyclobenzaprine5 MG PO (14:08)
[2022-10-10] MEDS ORDERED: MOBIC15 MG PO (14:11)
--- NOTE | 2022-10-10 17:06 | NUR ---
SHIFT SUMMARY NO ACUTE CHANGES DURING SHIFT. PT ALERT AND ORIENTED, CALLS APPROPRIATELY. WOODS IN PLACE, DRAINING IN GRAVITY. PT STILL C/O PAIN TO BACK AND LOWER EXTREMITIES. PRN MEDICATIONS ADMINISTERED AND SCHEDULED MEDICATIONS ORDERED. PT STATES EFFECTIVE. CONTINUED IV ABX. PT ACCEPTED TO [facility] ONCE MEDICALLY CLEARED. WILL CONTINUE TO MONITOR. CALL LIGHT WITHIN REACH.
[2022-10-10 18:05] LABS: Vancomycin, Trough 17.7 ug/mL (5.0-10.0)
--- NOTE | 2022-10-11 05:43 | NUR ---
End of shift Summary Mr Ross is a 67 y/o male, presented to the ED on 09/30/2022 for fever, chills, nausea, vomiting and muscle aches for 4 days. He was admitted to medical unit for Sepsis - blood cultures positive for Strep B. CT of the ABD showed 1.9cm nodule to R-L-Lung. Medical history include BPH, DB-II, Osteoathritis, chronic back pain, HLP and Obesity. He is AOX4, Full code, able to communicate needs and wants. Vitals this shift BP 157/60, HR 94, Temp 97.6 and Spo2 97% on room air. O-likmxfc-21m IV is paten, cefepine and vancomycin infused during shift. Vanc-Trough 10/10 was 17.7, and next lab is scheduled for 10/12 0500 Am. Complains of pain to lower back and Medicated with oxycodone X1 during the shift. Plan to transfer to [facility] once treatment is complete.
--- NOTE | 2022-10-11 18:41 | NUR ---
SHIFT SUMMARY PT IS A&O X4, ABLE TO USE CALL LIGHT. HE WAS SLEEPY MOST OF THE SHIFT, AND SLEPT THROUGH DINNER. BLOOD SUGARS IN THE AM WERE STABLE, BELOW 150. 1630 CBG WAS 194. PT HAS WOODS DRAINING YELLOW URINE TO GRAVITY. HE IS ON ROOM AIR. C/O PAIN IN THE RIGHT HIP, BLE NEUROPATHY AND CHRONIC BACK PAIN , WHICH IS RELIEVED BY PRN PAIN MEDICATIONS. DR. DOZIER MADE CHANGES TO PT'S INSULIN REGIMEN, DUE TO A TREND OF LOW AM BLOOD SUGARS. DECREASED SLIDING SCALE FROM HIGH TO MEDIUM AND DECREASED GLARGINE DOSE. PLAN IS TO DISCHARGE TO [facility] FOR PT/OT.
[2022-10-12 05:11] LABS: BASOPHILS ABSOLUTE AUTO 0.02 K/mm3 (0.00-0.23); BASOPHILS PERCENT AUTO 0 % (0-2); EOSINOPHILS PERCENT AUTO 1 % (0-6); Hematocrit 26.7 % (37.0-53.0); Hemoglobin 9.2 g/dL (13.5-17.5); IMMATURE GRAN ABSOLUTE AUTO 0.12 K/mm3 (0.00-0.10); IMMATURE GRAN PERCENT AUTO 1 % (0-1); LYMPHOCYTES ABSOLUTE AUTO 1.09 K/mm3 (0.84-5.20); LYMPHOCYTES PERCENT AUTO 8 % (21-46); MONOCYTES ABSOLUTE AUTO 1.09 K/mm3 (0.16-1.47); MONOCYTES PERCENT AUTO 8 % (4-13); Mean Corpuscular HGB 30.2 pg (26.0-34.0); Mean Corpuscular HGB Conc 34.5 g/dL (31.5-36.5); Mean Corpuscular Volume 88 fL (80-100); Mean Platelet Volume 9.4 fL (9.1-12.4); NEUTROPHILS ABSOLUTE AUTO 12.06 K/mm3 (1.96-9.15); NEUTROPHILS PERCENT AUTO 83 % (41-73); Platelet Count 286 K/mm3 (150-400); RDW Standard Deviation 44.8 fL (35.1-46.3); Red Blood Cell Count 3.05 M/mm3 (4.30-5.90); White Blood Cell Count 14.48 K/mm3 (4.00-11.30)
[2022-10-12 05:41] LABS: Alanine Aminotransfer (ALT/SGP 38 U/L (12-78); Albumin, Blood 1.3 g/dL (3.4-5.0); Albumin/Globulin Ratio 0.2 (0.8-1.8); Alk Phos 196 U/L (50-136); Anion Gap 6 mmol/L (6-16); Aspartate Aminotrans (AST/SGOT 42 U/L (12-37); Bilirubin, Total 1.1 mg/dL (0.1-1.0); Blood Urea Nitrogen 18 mg/dL (8-24); Bun/Creatinine Ratio 28.7 (12.0-20.0); CO2, Blood 27 mmol/L (21-32); Calcium, Blood 8.2 mg/dL (8.5-10.1); Chloride, Blood 98 mmol/L (98-108); Creatinine, Blood 0.63 mg/dL (0.60-1.20); Globulin, Blood 5.2 g/dL (2.2-4.0); Glomerular Filtration Rate 103 (60-); Glucose, Blood 176 mg/dL (70-99); Potassium, Blood 3.9 mmol/L (3.5-5.5); Sodium, Blood 131 mmol/L (136-145); Total Protein, Blood 6.5 g/dL (6.4-8.2); Vancomycin, Trough 19.1 ug/mL (5.0-10.0)
--- NOTE | 2022-10-12 19:43 | NUR ---
SHIFT SUMMARY PTN C/O OF PAIN IN HIPS AND BACK, WITH TURNING DURING BATH AND OTHER TIMES. PLACED MEPILEX TO COCCYX WHERE BLISTERING, REDDENED AREA NOTED, WHICH BLANCHED IN SOME AREAS BUT DID NOT JERMAINE IN OUTER AREA. Q2 TURNS IMPORTANT, PTN EDUCATED ON NEED TO STAY OFF AND PRESSURE TO ANY ONE AREA. AT HOME HE IS AMBULATORY, BUT HERE HE IS SEDENTARY. PRESENT MUCH OF SHIFT. PTN DID TAKE 10 MG OXYCODONE, BUT THEN HE SLEPT ALMOST ALL DAY. LATER IN AFTERNOON HE REQUESTED JUST ONE TABLET OF 5 MG FOR PAIN. WOODS PLACED WITH GRAVITY DRAIN. NO NOTED CHANGES THIS SHIFT. CONTINUE TO MONITOR.
--- NOTE | 2022-10-13 04:14 | NUR ---
SHIFT SUMMARY 67 YR M ADMITTED ON 09/30/22 FOR SEPSIS. FULL CODE. NO ACUTE CHANGES THIS SHIFT. DUE TO RECENTLY DISCOVERED BLISTERS ON HIS BUTTOCKS, PT NEEDS TO LAY ON EITHER SIDE AND KEEP PRESSURE OFF HIS BOTTOM. 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 WOODS IS PATENT AND DRAING TO GRAVITY.
[2022-10-13 04:53] LABS: BASOPHILS ABSOLUTE AUTO 0.03 K/mm3 (0.00-0.23); BASOPHILS PERCENT AUTO 0 % (0-2); EOSINOPHILS ABSOLUTE AUTO 0.16 K/mm3 (0.00-0.68); EOSINOPHILS PERCENT AUTO 1 % (0-6); Hematocrit 25.8 % (37.0-53.0); Hemoglobin 8.8 g/dL (13.5-17.5); IMMATURE GRAN ABSOLUTE AUTO 0.09 K/mm3 (0.00-0.10); IMMATURE GRAN PERCENT AUTO 1 % (0-1); LYMPHOCYTES ABSOLUTE AUTO 1.19 K/mm3 (0.84-5.20); LYMPHOCYTES PERCENT AUTO 8 % (21-46); MONOCYTES ABSOLUTE AUTO 1.27 K/mm3 (0.16-1.47); MONOCYTES PERCENT AUTO 9 % (4-13); Mean Corpuscular HGB 29.9 pg (26.0-34.0); Mean Corpuscular HGB Conc 34.1 g/dL (31.5-36.5); Mean Corpuscular Volume 88 fL (80-100); Mean Platelet Volume 9.6 fL (9.1-12.4); NEUTROPHILS ABSOLUTE AUTO 11.91 K/mm3 (1.96-9.15); NEUTROPHILS PERCENT AUTO 81 % (41-73); Platelet Count 278 K/mm3 (150-400); RDW Coefficient Variation 13.7 % (11.7-14.2); RDW Standard Deviation 44.6 fL (35.1-46.3); Red Blood Cell Count 2.94 M/mm3 (4.30-5.90); White Blood Cell Count 14.65 K/mm3 (4.00-11.30)
--- NOTE | 2022-10-13 17:09 | NUR ---
SHIFT SUMMARY NO ACUTE CHANGES DURING SHIFT. PT ALERT AND ORIENTED, CALLS APPROPRIATELY. WOODS IN PLACE, DRAINING TO GRAVITY. PT STILL C/O PAIN TO BACK AND BLE UPON ANY MOVEMENT. SCHEDULED AND PRN MEDICATIONS ADMINISTRED DURING SHIFT. PT REMAINS ON RA, SPO2 > 92%. PT POSSIBLY PENDING D/C TO [facility] TOMORROW. WILL CONTINUE TO MONITOR. CALL LIGHT WITHIN REACH.
[2022-10-14 06:05] LABS: BASOPHILS ABSOLUTE AUTO 0.03 K/mm3 (0.00-0.23); BASOPHILS PERCENT AUTO 0 % (0-2); EOSINOPHILS ABSOLUTE AUTO 0.19 K/mm3 (0.00-0.68); EOSINOPHILS PERCENT AUTO 2 % (0-6); Hematocrit 25.4 % (37.0-53.0); Hemoglobin 8.6 g/dL (13.5-17.5); IMMATURE GRAN ABSOLUTE AUTO 0.08 K/mm3 (0.00-0.10); IMMATURE GRAN PERCENT AUTO 1 % (0-1); LYMPHOCYTES ABSOLUTE AUTO 1.12 K/mm3 (0.84-5.20); LYMPHOCYTES PERCENT AUTO 9 % (21-46); MONOCYTES ABSOLUTE AUTO 1.03 K/mm3 (0.16-1.47); MONOCYTES PERCENT AUTO 8 % (4-13); Mean Corpuscular HGB 29.5 pg (26.0-34.0); Mean Corpuscular HGB Conc 33.9 g/dL (31.5-36.5); Mean Corpuscular Volume 87 fL (80-100); Mean Platelet Volume 9.5 fL (9.1-12.4); NEUTROPHILS ABSOLUTE AUTO 9.95 K/mm3 (1.96-9.15); NEUTROPHILS PERCENT AUTO 80 % (41-73); Platelet Count 273 K/mm3 (150-400); RDW Coefficient Variation 13.6 % (11.7-14.2); RDW Standard Deviation 43.1 fL (35.1-46.3); Red Blood Cell Count 2.92 M/mm3 (4.30-5.90)
[2022-10-14 06:25] LABS: Albumin, Blood 1.2 g/dL (3.4-5.0); Albumin/Globulin Ratio 0.2 (0.8-1.8); Bilirubin, Total 0.9 mg/dL (0.1-1.0); Calcium, Blood 8.5 mg/dL (8.5-10.1); Creatinine, Blood 0.61 mg/dL (0.60-1.20); Globulin, Blood 4.9 g/dL (2.2-4.0); Potassium, Blood 3.8 mmol/L (3.5-5.5); Total Protein, Blood 6.1 g/dL (6.4-8.2)
--- NOTE | 2022-10-14 06:37 | NUR ---
END OF SHIFT REPORT Patient had a pleasant night with no acute events. Repositioned Q2Hrs with minimal discomfort. Wound care done to sosa area and dressed with Mepilex. Declined pain during the shift. Received x1 dose of Cefipine as ordered. [facility].
[2022-10-14] MEDS ORDERED: HUMALOG KW100 UNIT/1 SC (10:53)
[2022-10-14 11:47] LABS: Influenza A, PCR NEGATIVE (NEGATIVE); Influenza B, PCR NEGATIVE (NEGATIVE); Resp Syncytial Virus, PCR NEGATIVE (NEGATIVE); SARS-Cov-2 (COVID-19) PCR, MMC NEGATIVE (NEGATIVE)
[2022-10-14] MEDS ORDERED: ROSU10TA PO (14:19)
[2022-10-14] MEDS ORDERED: CEFEPIME HCL2 G1 IV (14:20)
[2022-10-14] MEDS ORDERED: LIDO700A20 TOP (14:22)
[2022-10-14] MEDS ORDERED: FLUC200 PO (14:22)
[2022-10-14] MEDS ORDERED: LOSA50 PO (14:23)
[2022-10-14] MEDS ORDERED: METO25 PO (14:23)
[2022-10-14] MEDS ORDERED: OXYC5 PO (14:24)
[2022-10-14] MEDS ORDERED: PANT40 PO (14:24)
[2022-10-14] MEDS ORDERED: LACT PO (14:25)
--- NOTE | 2022-10-14 17:46 | NUR ---
DISCHARGE SUMMARY PATIENT IS ALERT AND ORIENTED. PATIENT HAS HAD NO ACUTE EVENTS THIS SHIFT. PATIENT IS BEING DISCHARGED TO [facility]. POWERGLIDE WAS PUT IN THIS AFTERNOON FOR DISCHARGE IV ANTIBIOTICS. [facility].
== END 2022-10-14 16:44 | DRG 872 ==
LOC: ER 15:49 → MEDS 22:19
PROVIDERS: Family Medicine; Internal Medicine; Physician Assistant; Student in an Organized Health Care Education/Training Program; ADMIT Internal Medicine
DX: A40.1 Sepsis due to streptococcus, group B (principal); N39.0 Urinary tract infection, site not specified; N17.9 Acute kidney failure, unspecified; E87.1 Hypo-osmolality and hyponatremia; I76 Septic arterial embolism; B38.9 Coccidioidomycosis, unspecified; B48.8 Other specified mycoses; E87.20 Acidosis, unspecified; L03.113 Cellulitis of right upper limb; R65.20 Severe sepsis without septic shock; D69.6 Thrombocytopenia, unspecified; E80.6 Other disorders of bilirubin metabolism; E78.5 Hyperlipidemia, unspecified; M54.40 Lumbago with sciatica, unspecified side; R91.1 Solitary pulmonary nodule; E11.65 Type 2 diabetes mellitus with hyperglycemia; I10 Essential (primary) hypertension; N40.0 Benign prostatic hyperplasia without lower urinary tract symptoms; M19.90 Unspecified osteoarthritis, unspecified site; G89.29 Other chronic pain; E66.9 Obesity, unspecified; K29.80 Duodenitis without bleeding; K27.9 Peptic ulcer, site unspecified, unspecified as acute or chronic, without hemorrhage or perforation; F41.9 Anxiety disorder, unspecified; M79.7 Fibromyalgia; G25.81 Restless legs syndrome; G47.30 Sleep apnea, unspecified; F12.10 Cannabis abuse, uncomplicated; E86.1 Hypovolemia; Z20.822 Contact with and (suspected) exposure to COVID-19; Z88.5 Allergy status to narcotic agent; Z79.899 Other long term (current) drug therapy; Z79.4 Long term (current) use of insulin; Z68.28 Body mass index [BMI] 28.0-28.9, adult; Z79.84 Long term (current) use of oral hypoglycemic drugs; Z98.1 Arthrodesis status; Z98.890 Other specified postprocedural states; Z87.891 Personal history of nicotine dependence; Z88.0 Allergy status to penicillin
CPT/HCPCS: 0241U; 36415; 71260; 72132; 73030; 73130; 74177; 76700; 80048; 80053; 80202; 81001; 82247; 82248; 82465; 82570; 82728; 82947; 82977; 83540; 83550; 83605; 83615; 83690; 83735; 83930; 83935; 84100; 84300; 84450; 84460; 84478; 85007; 85025; 85027; 85384; 85610; 85651; 86015; 86140; 86225; 86235; 86381; 86635; 86704; 86708; 86803; 87040; 87086; 87147; 87340; 87389; 93005; 93010; 93306; 94760; 96361; 96374; 96375; 97110; 97162; 97530; 99285-25; A9270; C9113; J0692; J0696; J1650; J1815; J1885; J3010; J3370; J3480; J7030; J7050; J7120; Q9967

== ENCOUNTER 2022-11-06 12:54 | Inpatient (IN) | payer MEDICARE ==
[~2022-11-06] VITALS: Ht 182.9 cm; Wt 109.3 kg
[~2022-11-06 12:54] MED LIST changes: +CEFEPIME HCL2 G1 IV; +Cyclobenzaprine5 MG PO; +FLUC200 PO; +HUMALOG KW100 UNIT/1 SC; +LACT PO; +LIDO700A20 TOP; +LOSA50 PO; +METO25 PO; +MOBIC15 MG PO; +OXYC5 PO; +PANT40 PO
[2022-11-06] MEDS ORDERED: METO25 PO (14:11)
[2022-11-06 14:12] LABS: BASOPHILS ABSOLUTE AUTO 0.02 K/mm3 (0.00-0.23); BASOPHILS PERCENT AUTO 0 % (0-2); EOSINOPHILS ABSOLUTE AUTO 0.06 K/mm3 (0.00-0.68); EOSINOPHILS PERCENT AUTO 1 % (0-6); Hematocrit 21.2 % (37.0-53.0); Hemoglobin 6.7 g/dL (13.5-17.5); IMMATURE GRAN ABSOLUTE AUTO 0.08 K/mm3 (0.00-0.10); IMMATURE GRAN PERCENT AUTO 1 % (0-1); LYMPHOCYTES ABSOLUTE AUTO 1.17 K/mm3 (0.84-5.20); LYMPHOCYTES PERCENT AUTO 10 % (21-46); MONOCYTES PERCENT AUTO 7 % (4-13); Mean Corpuscular HGB 27.1 pg (26.0-34.0); Mean Corpuscular HGB Conc 31.6 g/dL (31.5-36.5); Mean Corpuscular Volume 86 fL (80-100); Mean Platelet Volume 9.6 fL (9.1-12.4); NEUTROPHILS ABSOLUTE AUTO 9.86 K/mm3 (1.96-9.15); NEUTROPHILS PERCENT AUTO 82 % (41-73); Platelet Count 288 K/mm3 (150-400); RDW Coefficient Variation 15.9 % (11.7-14.2); RDW Standard Deviation 50.4 fL (35.1-46.3); Red Blood Cell Count 2.47 M/mm3 (4.30-5.90); White Blood Cell Count 11.99 K/mm3 (4.00-11.30)
[2022-11-06] MEDS ORDERED: OXAYDO5 M3 PO (14:12)
[2022-11-06] MEDS ORDERED: Acetaminophen650 M1 PO (14:12)
[2022-11-06 14:32] LABS: Albumin, Blood 1.2 g/dL (3.4-5.0); Albumin/Globulin Ratio 0.2 (0.8-1.8); Bilirubin, Total 1.3 mg/dL (0.1-1.0); Bun/Creatinine Ratio 28.2 (12.0-20.0); Calcium, Blood 7.7 mg/dL (8.5-10.1); Creatinine, Blood 0.92 mg/dL (0.60-1.20); Globulin, Blood 5.3 g/dL (2.2-4.0); Potassium, Blood 4.3 mmol/L (3.5-5.5); Total Protein, Blood 6.5 g/dL (6.4-8.2)
[2022-11-06 17:12] LABS: Source, Urine Clean Catch
[2022-11-06 17:23] LABS: Appearance, Urine Cloudy (Clear); Blood, Urine 5+ (Neg); Color, Urine Amber (P-Yellow); Glucose Qualitative, Urine Neg (Neg); Ketones, Urine Neg (Neg); Leukocyte Esterase, Urine 3+ (Neg); Nitrite, Urine Neg (Neg); Protein, Urine 3+ (Neg); Specific Gravity, Urine 1.015 (1.003-1.022); Urobilinogen, Urine 3+ (Normal)
[2022-11-06 17:35] LABS: Bilirubin, Urine 1+ (Neg)
[2022-11-06 17:36] LABS: Red Blood Cells, Urine TNTC /hpf (0-2); White Blood Cells, Urine TNTC /hpf (0-5)
[2022-11-06 17:38] LABS: Bacteria Many /hpf; Renal Epithelial Few /hpf (0-Rare); Squamous Epithelial Cells Rare /hpf (Few); Transitional Epithelial Cells Few /hpf (0-Rare)
--- NOTE | 2022-11-07 05:18 | NUR ---
END OF SHIFT NURSING REPORT Presented to the ED with hypotention, tachycardia and fever of 102. He is AOX3, follows commands and responds approprietly to question. CHG Bath done and changed into hospital gown. He received 3L bolus in the ED, and continous NS at 150ml/Hr. Lung sounds clear, maintains sats over 92% on room air. No edema present. Skin 1) Coccyx - Unstagable - Full thickness tissue loss in which the ulcer base is covered by black slough and red around the edges. Cleaned and covered with Allevyn boarder dressing 2) Left heel - Unstagable - 7cm X 6cm - Black escar present. Covered with Heel boarder mepilex. 3. RIGHT LEG - scrach and light bruising. ZORAN.
[2022-11-07 05:48] LABS: BASOPHILS ABSOLUTE AUTO 0.02 K/mm3 (0.00-0.23); BASOPHILS PERCENT AUTO 0 % (0-2); EOSINOPHILS ABSOLUTE AUTO 0.08 K/mm3 (0.00-0.68); EOSINOPHILS PERCENT AUTO 1 % (0-6); Hemoglobin 6.7 g/dL (13.5-17.5); IMMATURE GRAN ABSOLUTE AUTO 0.06 K/mm3 (0.00-0.10); IMMATURE GRAN PERCENT AUTO 1 % (0-1); LYMPHOCYTES ABSOLUTE AUTO 1.32 K/mm3 (0.84-5.20); LYMPHOCYTES PERCENT AUTO 15 % (21-46); MONOCYTES ABSOLUTE AUTO 0.79 K/mm3 (0.16-1.47); MONOCYTES PERCENT AUTO 9 % (4-13); Mean Corpuscular HGB 27.6 pg (26.0-34.0); Mean Corpuscular HGB Conc 31.9 g/dL (31.5-36.5); Mean Corpuscular Volume 86 fL (80-100); Mean Platelet Volume 9.8 fL (9.1-12.4); NEUTROPHILS ABSOLUTE AUTO 6.65 K/mm3 (1.96-9.15); NEUTROPHILS PERCENT AUTO 75 % (41-73); Platelet Count 255 K/mm3 (150-400); RDW Coefficient Variation 16.2 % (11.7-14.2); RDW Standard Deviation 51.6 fL (35.1-46.3); Red Blood Cell Count 2.43 M/mm3 (4.30-5.90); White Blood Cell Count 8.92 K/mm3 (4.00-11.30)
[2022-11-07 06:13] LABS: Albumin, Blood 1.2 g/dL (3.4-5.0); Anion Gap 6 mmol/L (6-16); Blood Urea Nitrogen 26 mg/dL (8-24); CO2, Blood 25 mmol/L (21-32); Calcium, Blood 7.4 mg/dL (8.5-10.1); Chloride, Blood 103 mmol/L (98-108); Creatinine, Blood 0.87 mg/dL (0.60-1.20); Glomerular Filtration Rate 93 (60-); Glucose, Blood 114 mg/dL (70-99); Magnesium, Blood 1.9 mg/dL (1.6-2.4); Phosphorus, Blood 3.4 mg/dL (2.5-4.9); Potassium, Blood 3.9 mmol/L (3.5-5.5); Sodium, Blood 134 mmol/L (136-145)
[2022-11-07 13:31] LABS: Stool Occult Bld Immuno 1 Negative (NEGATIVE)
--- NOTE | 2022-11-07 17:49 | NUR ---
PATIENT A/OX4, WORKED WITH OT TODAY AND IS CURRENTLY HAS NO FEELING IN HIS LEGS AND IS UNABLE TO MOVE THEM. PATIENT VERY PAIN IN NECK/SHOULDERS AND BACK. WAS ABLE TO WITHSTAND THE MRI OF HIS SPINE TODAY. FLEXERIL/TYLENOL AND OXYCODONE USED TO TREAT PAIN WITH SOME RELIEF. WOODS TO GRAVITY, ADEQUATE U/O. UNASTAGABLE PRESSURE SORES TO L HEEL AND COCCYX. DRESSINGS CHANGED THIS SHIFT AND PICS ARE ON THE CHART. VSS, ON RA. DYE BLENDER IN TO SEE PATIENT AND APPETITE HAS IMPROVED SOME. INCONTINENT OF BOWEL, WEARING ATTENDS AND PATIENT DID HAVE SEVERAL INCONTINENT BM'S TODAY. PLEASANT AND COOPERATIVE WITH CARE, ABLE TO MAKE NEEDS KNOWN.
[2022-11-08 05:04] LABS: BASOPHILS ABSOLUTE AUTO 0.01 K/mm3 (0.00-0.23); BASOPHILS PERCENT AUTO 0 % (0-2); EOSINOPHILS ABSOLUTE AUTO 0.09 K/mm3 (0.00-0.68); EOSINOPHILS PERCENT AUTO 1 % (0-6); Hematocrit 19.6 % (37.0-53.0); Hemoglobin 6.3 g/dL (13.5-17.5); IMMATURE GRAN ABSOLUTE AUTO 0.05 K/mm3 (0.00-0.10); IMMATURE GRAN PERCENT AUTO 1 % (0-1); LYMPHOCYTES ABSOLUTE AUTO 1.33 K/mm3 (0.84-5.20); LYMPHOCYTES PERCENT AUTO 16 % (21-46); MONOCYTES PERCENT AUTO 8 % (4-13); Mean Corpuscular HGB Conc 32.1 g/dL (31.5-36.5); Mean Corpuscular Volume 84 fL (80-100); Mean Platelet Volume 9.4 fL (9.1-12.4); NEUTROPHILS ABSOLUTE AUTO 6.42 K/mm3 (1.96-9.15); NEUTROPHILS PERCENT AUTO 75 % (41-73); Platelet Count 239 K/mm3 (150-400); RDW Coefficient Variation 16.4 % (11.7-14.2); RDW Standard Deviation 50.6 fL (35.1-46.3); Red Blood Cell Count 2.33 M/mm3 (4.30-5.90)
[2022-11-08 05:50] LABS: Albumin, Blood 1.2 g/dL (3.4-5.0); Anion Gap 7 mmol/L (6-16); Blood Urea Nitrogen 19 mg/dL (8-24); Bun/Creatinine Ratio 22.1 (12.0-20.0); CO2, Blood 23 mmol/L (21-32); Calcium, Blood 7.4 mg/dL (8.5-10.1); Chloride, Blood 102 mmol/L (98-108); Creatinine, Blood 0.86 mg/dL (0.60-1.20); Glomerular Filtration Rate 94 (60-); Glucose, Blood 74 mg/dL (70-99); Phosphorus, Blood 3.1 mg/dL (2.5-4.9); Potassium, Blood 3.6 mmol/L (3.5-5.5); Sodium, Blood 132 mmol/L (136-145)
--- NOTE | 2022-11-08 06:29 | NUR ---
SHIFT SUMMARY 67 YR M ADMITTED ON 11/06/22 FOR SEPSIS. FULL CODE. NO ACUTE CHANGES THIS SHIFT. PT IS A&O X 4 AND IS VERY PLEASANT AND COOPERATIVE WITH CARE. HE C/O PAIN IN HIS BACK AT APPROX 2000 AND IT WAS TOO EARLY FOR MORE PAIN MEDS AND HE WAS TOLD HE COULD HAVE MORE AT 2330, BUT HE FELL ASLEEP AND DID NOT REQUEST ANYTHING FOR PAIN THE REST OF THIS SHIFT. WOUND BANDAGES ARE C/D/I AND WERE NOT CHANGED THIS SHIFT. EVENING BLOOD SUGAR WAS 108 SO BOTH TYPES OF INSULIN WERE HELD. 2100 DOXAZOSIN WAS HELD DUE TO SOFT BP.
--- NOTE | 2022-11-08 18:39 | NUR ---
SHIFT SUMMARY: PATIENT ALERT AND ORIENTED TO SELF, PLACE AND PERSON, BUT COULD NOT RECALL THE SPICIFIC DAY, DATE, MONTH AND YEAR. DENIES CP/PRESSURE. RA, LUNGS CLEAR/DIM T/O TO AUSCULTATIONS. BEDREST, Q2 TURN T/O SHIFT. PATIENT BS RANGES FROM 74-156. RECIEVED BS COVERAGE AT DINNER TIME PER MEDIUM SLIDING SCALE. PATIENT HAS WOODS, PATENT DRAINING TO GRAVITY c DARK YELLOW URINE. CATHCARE, VICENTE CARE DONE AND ATTENDS CHANGED. MIPELEX DRESSING CHANGED TO COCCYX AND R HEEL. IV TO R FOREARM INFUSING VANCOMYCIN AT THIS TIME. PATIENT REPORTS PAIN TO NECK AND BACK. MEDICATED X1 c TYLENOL AND REPOSITIONING. REPORTS OF HAVING GOOD RELIEF. VITAL SIGNS REVIEWED. BED ALARM ON FOR SAFETY. CALL LIGHT IN REACH.
[2022-11-08 20:24] LABS: Albumin, Blood 1.3 g/dL (3.4-5.0); Anion Gap 7 mmol/L (6-16); Blood Urea Nitrogen 20 mg/dL (8-24); Bun/Creatinine Ratio 23.7 (12.0-20.0); CO2, Blood 24 mmol/L (21-32); Calcium, Blood 7.4 mg/dL (8.5-10.1); Chloride, Blood 102 mmol/L (98-108); Creatinine, Blood 0.84 mg/dL (0.60-1.20); Glomerular Filtration Rate 94 (60-); Glucose, Blood 118 mg/dL (70-99); Potassium, Blood 3.9 mmol/L (3.5-5.5); Sodium, Blood 133 mmol/L (136-145)
[2022-11-09 05:17] LABS: BASOPHILS ABSOLUTE AUTO 0.02 K/mm3 (0.00-0.23); BASOPHILS PERCENT AUTO 0 % (0-2); EOSINOPHILS ABSOLUTE AUTO 0.06 K/mm3 (0.00-0.68); EOSINOPHILS PERCENT AUTO 1 % (0-6); Hematocrit 22.4 % (37.0-53.0); Hemoglobin 7.5 g/dL (13.5-17.5); IMMATURE GRAN PERCENT AUTO 1 % (0-1); LYMPHOCYTES ABSOLUTE AUTO 1.21 K/mm3 (0.84-5.20); LYMPHOCYTES PERCENT AUTO 11 % (21-46); MONOCYTES PERCENT AUTO 7 % (4-13); Mean Corpuscular HGB 27.9 pg (26.0-34.0); Mean Corpuscular HGB Conc 33.5 g/dL (31.5-36.5); Mean Corpuscular Volume 83 fL (80-100); Mean Platelet Volume 9.4 fL (9.1-12.4); NEUTROPHILS ABSOLUTE AUTO 8.68 K/mm3 (1.96-9.15); NEUTROPHILS PERCENT AUTO 81 % (41-73); Platelet Count 251 K/mm3 (150-400); RDW Coefficient Variation 15.9 % (11.7-14.2); RDW Standard Deviation 48.3 fL (35.1-46.3); Red Blood Cell Count 2.69 M/mm3 (4.30-5.90); White Blood Cell Count 10.77 K/mm3 (4.00-11.30)
--- NOTE | 2022-11-09 06:00 | NUR ---
END OF SHIFT NURSING REPORT - PM Admitted for Sepsis, urine + Klebsiella pneumoniae. Patient on Maxipine 1g and Vancomycin 1g for coverage. He is AOX4 during shift. Complained of restless legs and cramps, and ran a mild fever Tmax 100.4. Medicated with PRN's as ordered. Gautam 16F inserted in the ED - gautam care done. No s/s of infection. Urine klever and draining via gravity to collection bag. Hemoglobin noted 6.3 during shift change from AM Labs. Notified and ordered 1 Unit PRBC. Transfused as ordered and patient tolerated transfusion - no adverse reaction noted. AM Hemoglobin is 7.5. SKIN 11 cm x 13 cm Unstagable pressure injury on the patient s sacrum. Wound base is covered with hard black w necrotic tissue with foul odor prulent drainage present. Periwound skin is red, warm, and non-tender to palpation. Patient temperature is 100.4F. Cleansed with wound cleander solution and rinsed with normal saline spray. Wound base covered with MedHoney and dump 4x4 gauze. Secured with Sacrum boarder Merpilex. Patient declined pain through the procedure. 7 cm x 6 cm Unstagable pressure injury on the patient s left Heel. Cleansed with wound cleander solution and rinsed with normal saline. Wound base has black eschar, and no drainage. Wound covered with Heel Boarder form dressing and padded with heel protectors bilateral.
--- NOTE | 2022-11-09 16:47 | NUR ---
SHIF SUMMARY: PATIENT A&OX3. PLEASANT AND COOPERATIVE c CARE. NO NEW CHANGES THIS SHIFT. PATIENT PARTICIPATED c PT MOBILITY IN BED TODAY. PATIENT 2 MAX ASSIST TO CHANGED AND REPOSITION T/O SHIFT. RECEIVED BEDBATH AND LINEN CHANGED. DRESSING CHANGED TO COCCYX AND L HEEL PER ORDER. RECEIVED IV ABX. DENIES CP/PRESSURE. WOODS PATENT, DRAINING DARK YELLOW URINE TO GRAVITY. VITAL SIGNS REVIEWED. CALL LIGHT IN REACH.
--- NOTE | 2022-11-09 18:04 | NUR ---
NURSE NOTE: PT REVECIVED IV ABX, PROTONIX AND LOPRESSOR PO. PT SKIN TEMPERTURE WARM TO TOUCH. ORAL TEMPERTURE TAKEN BY CAPACITY PLANNING ENGINEER AND 100.8 ORAL. PT RECEVIED TYLENOL 650MG PO FOR FEVER.
--- NOTE | 2022-11-10 06:00 | NUR ---
END OF SHIFT NURSING REPORT - PM Admitted for Sepsis, urine + Klebsiella pneumoniae. Patient on Maxipine 1g and Vancomycin 1g for coverage. MRI shows vertebral osteomylitis. He is AOX4 during shift. Mild fever Tmax 100.2 at. [place] medications whole with apple sauce and water. Had a medium stool - brown and loose. Gautam 16F inserted in the ED - gautam care done. No s/s of infection. Urine klever, and cloudy, draining via gravity to collection bag. SKIN 11 cm x 13 cm Unstagable pressure injury on the patient s sacrum. Wound base is covered with hard black w necrotic tissue with foul odor prulent drainage present. Periwound skin is red, warm, and non-tender to palpation. Patient temperature is 97.7F. Cleansed with wound cleander solution and rinsed with normal saline spray. Wound base covered with MedHoney and dump 4x4 gauze. Secured with Sacrum boarder Merpilex. Patient declined pain through the procedure. 7 cm x 6 cm Unstagable pressure injury on the patient s left Heel. Cleansed with wound cleander solution and rinsed with normal saline. Wound base has black eschar, and no drainage. Wound covered with Heel Boarder form dressing and padded with heel protectors bilateral.
[2022-11-10 16:37] LABS: Vancomycin, Trough 34.4 ug/mL (5.0-10.0)
--- NOTE | 2022-11-10 18:51 | NUR ---
SHIFT SUMMARY A&O X 3. VSS. PT C/O PAIN MEDICATED PER EMAR. PT HAS BEEN QUITE GROGGY SINCE PAIN MED GIVEN. WILL AROUSE BUT UNABLE TO REMAIN AWAKE TO SAFELY SWALLOW MEDS. LINENS CHANGED. PT HAD BM, LOOSE BROWN. CHANGED IV SITES. APPETITE IS MARGINAL. IN FOR VISITS THIS SHIFT. WILL LIKELY RETURN TO [facility] WHEN READY FOR DC.
--- NOTE | 2022-11-11 06:19 | NUR ---
END OF SHIFT NURSING REPORT - PM Admitted for Sepsis, urine + Klebsiella pneumoniae. Patient on Maxipine antibiotic. MRI shows vertebral osteomylitis. He is AOX4 during shift. No fever during shift. Took medications whole with apple sauce and water. No BM during shift. Medicated with PRN flexeril for muscle spasm. Poor oral intake during dinner, QHS Glargine was 10 units sq. Gautam 16F inserted in the ED - gautam care done. No s/s of infection. Urine klever, and cloudy, draining via gravity to collection bag. SKIN Coccyx: 11 cm x 13 cm Unstagable pressure injury on the patient s sacrum. Wound base is covered with hard black w necrotic tissue with foul odor prulent drainage present. Periwound skin is red, warm, and non-tender to palpation. Patient temperature is 97.7F. Cleansed with wound cleander solution and rinsed with normal saline spray. Wound base covered with MedHoney and dump 4x4 gauze. Secured with Sacrum boarder Merpilex. Patient declined pain through the procedure. Left Heel: 7 cm x 6 cm Unstagable pressure injury on the patient s left Heel. Cleansed with wound cleander solution and rinsed with normal saline. Wound base has black eschar, and no drainage. Wound covered with Heel Boarder form dressing and padded with heel protectors bilateral.
[2022-11-11 07:34] LABS: BASOPHILS ABSOLUTE AUTO 0.03 K/mm3 (0.00-0.23); BASOPHILS PERCENT AUTO 0 % (0-2); EOSINOPHILS ABSOLUTE AUTO 0.07 K/mm3 (0.00-0.68); EOSINOPHILS PERCENT AUTO 1 % (0-6); Hematocrit 21.3 % (37.0-53.0); Hemoglobin 6.7 g/dL (13.5-17.5); IMMATURE GRAN ABSOLUTE AUTO 0.14 K/mm3 (0.00-0.10); IMMATURE GRAN PERCENT AUTO 1 % (0-1); LYMPHOCYTES ABSOLUTE AUTO 1.25 K/mm3 (0.84-5.20); LYMPHOCYTES PERCENT AUTO 10 % (21-46); MONOCYTES ABSOLUTE AUTO 0.79 K/mm3 (0.16-1.47); MONOCYTES PERCENT AUTO 6 % (4-13); Mean Corpuscular HGB 27.2 pg (26.0-34.0); Mean Corpuscular HGB Conc 31.5 g/dL (31.5-36.5); Mean Corpuscular Volume 87 fL (80-100); Mean Platelet Volume 9.3 fL (9.1-12.4); NEUTROPHILS ABSOLUTE AUTO 10.32 K/mm3 (1.96-9.15); NEUTROPHILS PERCENT AUTO 82 % (41-73); Platelet Count 214 K/mm3 (150-400); RDW Coefficient Variation 15.9 % (11.7-14.2); RDW Standard Deviation 50.8 fL (35.1-46.3); Red Blood Cell Count 2.46 M/mm3 (4.30-5.90)
[2022-11-11 07:55] LABS: Albumin, Blood 1.1 g/dL (3.4-5.0); Albumin/Globulin Ratio 0.2 (0.8-1.8); Bilirubin, Total 1.7 mg/dL (0.1-1.0); Bun/Creatinine Ratio 14.8 (12.0-20.0); Calcium, Blood 7.5 mg/dL (8.5-10.1); Creatinine, Blood 1.76 mg/dL (0.60-1.20); Globulin, Blood 5.1 g/dL (2.2-4.0); Potassium, Blood 4.1 mmol/L (3.5-5.5); Total Protein, Blood 6.2 g/dL (6.4-8.2)
[2022-11-11 13:10] LABS: Vancomycin, Random 27.5 ug/mL
--- NOTE | 2022-11-11 15:23 | NUR ---
LATE ENTRY/BLOOD TRANSFUSION 1425: PT'S HGB RESULTED AT 6.7. MD AWARE AND ORDERS RECEIVED TO TRANSFUSE 1 UNIT PRBC's. BLOOD IS AVAILABLE FROM LAB. 2 RN VERIFICATION DONE AND TRANSFUSION STARTED AT 1435. 1525: PT IS TOLERATING TRANSFUSION. VSS. AT BEDSIDE.
--- NOTE | 2022-11-11 18:59 | NUR ---
SHIFT SUMMARY HGB 6.7 TODAY. MD ORDERED 1 UNIT PRBC'S. TRANSFUSED AND PT TOLERATED WELL. PT A&O X 2-3. BP'S REMAIN SOFT. PT WITH NO COMPLAINTS TODAY. REMAINED AWAKE ABLE TO SAFELY SWALLOW MEDS TODAY. AT BEDSIDE MOST OF SHIFT. APPETITE IS POOR. WILL DRINK NUTRITIONAL SUPPLEMENTS, PREFERS CHOCOLATE. [facility] WHEN CLINICALLY READY FOR HOSPITAL DC.
--- NOTE | 2022-11-12 06:22 | NUR ---
END OF SHIFT NURSING REPORT - PM Admitted for Sepsis, urine + Klebsiella pneumoniae. Patient on Maxipine antibiotic. MRI shows vertebral osteomylitis. He is AOX4 during shift. No fever during shift. Took medications whole with apple sauce and water. No BM during shift. CHG Bath done during woundcare to coccyx and Left heel, and all bed linean changed. He is hypotensive BP 93/43, hr 94. Dr Ace notified and he ordered 1L NS at 100ml/hr. Patient is assymptomatic. 16F gautam remains in place for unstagable wound to coccyx - gautam care done. No s/s of infection. Urine klever, and cloudy, draining via gravity to collection bag. SKIN Coccyx: 11 cm x 13 cm Unstagable pressure injury on the patient s sacrum. Wound base is covered with hard black w necrotic tissue with foul odor prulent drainage present. Periwound skin is red, warm, and non-tender to palpation. Patient temperature is 97.7F. Cleansed with wound cleander solution and rinsed with normal saline spray. Wound base covered with MedHoney and dump 4x4 gauze. Secured with Sacrum boarder Merpilex. Patient declined pain through the procedure. Left Heel: 7 cm x 6 cm Unstagable pressure injury on the patient s left Heel. Cleansed with wound cleander solution and rinsed with normal saline. Wound base has black eschar, and no drainage. Wound covered with Heel Boarder form dressing and padded with heel protectors bilateral.
--- NOTE | 2022-11-12 08:52 | NUR ---
INSULIN GLARGINE BG WAS 68. UP TO 92 AFTER OJ AND BREAKFAST. PER T.O DR. SWANN, GIVE 15U OF GLARGINE INSTEAD OF THE ORDERED DOSE OF 20.
[2022-11-12 08:55] LABS: BASOPHILS ABSOLUTE AUTO 0.05 K/mm3 (0.00-0.23); BASOPHILS PERCENT AUTO 0 % (0-2); EOSINOPHILS PERCENT AUTO 1 % (0-6); Hematocrit 24.4 % (37.0-53.0); Hemoglobin 7.9 g/dL (13.5-17.5); IMMATURE GRAN PERCENT AUTO 1 % (0-1); LYMPHOCYTES ABSOLUTE AUTO 1.49 K/mm3 (0.84-5.20); LYMPHOCYTES PERCENT AUTO 10 % (21-46); MONOCYTES ABSOLUTE AUTO 0.66 K/mm3 (0.16-1.47); MONOCYTES PERCENT AUTO 4 % (4-13); Mean Corpuscular HGB 27.8 pg (26.0-34.0); Mean Corpuscular HGB Conc 32.4 g/dL (31.5-36.5); Mean Corpuscular Volume 86 fL (80-100); Mean Platelet Volume 9.9 fL (9.1-12.4); NEUTROPHILS ABSOLUTE AUTO 13.09 K/mm3 (1.96-9.15); NEUTROPHILS PERCENT AUTO 84 % (41-73); Platelet Count 238 K/mm3 (150-400); RDW Coefficient Variation 15.9 % (11.7-14.2); RDW Standard Deviation 50.4 fL (35.1-46.3); Red Blood Cell Count 2.84 M/mm3 (4.30-5.90); White Blood Cell Count 15.59 K/mm3 (4.00-11.30)
[2022-11-12 09:08] LABS: Vancomycin, Random 8.8 ug/mL
[2022-11-12 09:13] LABS: Albumin, Blood 1.1 g/dL (3.4-5.0); Albumin/Globulin Ratio 0.2 (0.8-1.8); Bilirubin, Total 2.3 mg/dL (0.1-1.0); Bun/Creatinine Ratio 14.9 (12.0-20.0); Calcium, Blood 6.8 mg/dL (8.5-10.1); Creatinine, Blood 2.41 mg/dL (0.60-1.20); Globulin, Blood 5.4 g/dL (2.2-4.0); Potassium, Blood 4.3 mmol/L (3.5-5.5); Total Protein, Blood 6.5 g/dL (6.4-8.2)
[2022-11-12 13:31] LABS: SARS-Cov-2 (COVID-19) PCR, MMC NEGATIVE (NEGATIVE)
[2022-11-12 15:29] LABS: Source, Urine Straight Cath
[2022-11-12 16:23] LABS: Appearance, Urine Cloudy (Clear); Blood, Urine 4+ (Neg); Color, Urine Yellow (P-Yellow); Glucose Qualitative, Urine Neg (Neg); Ketones, Urine Neg (Neg); Leukocyte Esterase, Urine 2+ (Neg); Nitrite, Urine Neg (Neg); Protein, Urine 3+ (Neg); Urobilinogen, Urine 1+ (Normal)
[2022-11-12 16:56] LABS: Bilirubin, Urine 1+ (Neg)
[2022-11-12 16:58] LABS: Amorphous Mod (0-Heavy)
[2022-11-12 16:59] LABS: Squamous Epithelial Cells Few /hpf (Few)
[2022-11-12 17:00] LABS: Bacteria Few /hpf; Renal Epithelial Few /hpf (0-Rare); Transitional Epithelial Cells Few /hpf (0-Rare)
--- NOTE | 2022-11-12 17:25 | NUR ---
Shift Summary A/Ox3 this morning, patient appearing to have slower responses as the day progressed. Requiring multiple ques to follow simple directions. Appetite is minimal. C/O neck pain, medicated per EMAR. in to see patient and requesting RN's to refrain from giving oxy d/t med causing somnolence. 2p turn/reposition. Dressing to coccyx changed.
[2022-11-12 20:28] LABS: Creatinine, Urine Random 82.4 mg/dL (27.00-270.00)
[2022-11-12 20:52] LABS: Eosinophils-Raw #,Urine 0
[2022-11-13 05:46] LABS: Hemoglobin 7.4 g/dL (13.5-17.5); Mean Corpuscular HGB 27.6 pg (26.0-34.0); Mean Corpuscular HGB Conc 32.2 g/dL (31.5-36.5); Mean Corpuscular Volume 86 fL (80-100); Platelet Count 226 K/mm3 (150-400); RDW Standard Deviation 50.3 fL (35.1-46.3); Red Blood Cell Count 2.68 M/mm3 (4.30-5.90); White Blood Cell Count 17.34 K/mm3 (4.00-11.30)
[2022-11-13 07:59] LABS: BAND PERCENT MAN 9 % (0-8); BASOPHILS PERCENT MAN 0 % (0-2); EOSINOPHILS ABSOLUTE MAN 0.17 K/mm3 (0.00-0.68); EOSINOPHILS PERCENT MAN 1 % (0-6); LYMPHOCYTES ABSOLUTE MAN 0.52 K/mm3 (0.84-5.20); LYMPHOCYTES PERCENT MAN 3 % (21-46); MONOCYTES ABSOLUTE MAN 0.17 K/mm3 (0.16-1.47); MONOCYTES PERCENT MAN 1 % (4-13); NEUTROPHILS ABSOLUTE MAN 16.47 K/mm3 (1.96-9.15); SEG NEUTROPHILS PERCENT MAN 86 % (41-73); TOTAL CELLS COUNTED 100
--- NOTE | 2022-11-13 16:40 | NUR ---
Student ELECTRICAL CONSTRUCTION PROJECT MANAGER note Patient was alert and oriented more in the morning. Edema in feet, legs and scrotum the same as previous day. Patient was very pleasent and calm. Family visited and helped with eating and care. Patient complained of back pain, previous day was unable to feel sensation in lower lumbar. Pain medication administered. MRI was ordered. Patient has been sleeping since pain medication was given.
[2022-11-13 17:13] LABS: Anion Gap 6 mmol/L (6-16); Blood Urea Nitrogen 45 mg/dL (8-24); Bun/Creatinine Ratio 14.5 (12.0-20.0); CO2, Blood 21 mmol/L (21-32); Calcium, Blood 7.2 mg/dL (8.5-10.1); Chloride, Blood 106 mmol/L (98-108); Creatinine, Blood 3.11 mg/dL (0.60-1.20); Glomerular Filtration Rate 21 (60-); Glucose, Blood 73 mg/dL (70-99); Potassium, Blood 4.5 mmol/L (3.5-5.5); Sodium, Blood 133 mmol/L (136-145); Total Protein, Blood 6.1 g/dL (6.4-8.2)
[2022-11-13 17:14] LABS: Alanine Aminotransfer (ALT/SGP 81 U/L (12-78); Albumin, Blood 1.1 g/dL (3.4-5.0); Albumin/Globulin Ratio 0.2 (0.8-1.8); Alk Phos 303 U/L (50-136); Aspartate Aminotrans (AST/SGOT 98 U/L (12-37); Bilirubin, Total 2.3 mg/dL (0.1-1.0)
[2022-11-13 17:19] LABS: Vancomycin, Random 32.3 ug/mL
[2022-11-13 17:51] LABS: Albumin, Blood 1.1 g/dL (3.4-5.0); Albumin/Globulin Ratio 0.2 (0.8-1.8); Bilirubin, Total 2.3 mg/dL (0.1-1.0); Bun/Creatinine Ratio 15.3 (12.0-20.0); Calcium, Blood 7.3 mg/dL (8.5-10.1); Creatinine, Blood 3.26 mg/dL (0.60-1.20); Potassium, Blood 4.7 mmol/L (3.5-5.5); Total Protein, Blood 6.1 g/dL (6.4-8.2)
--- NOTE | 2022-11-13 18:30 | NUR ---
NURSE NOTE THIS NURSE AGREES WITH SHIFT ASSESSMENT AND SHIFT SUMMARY NOTES
[2022-11-14 05:38] LABS: BASOPHILS ABSOLUTE AUTO 0.04 K/mm3 (0.00-0.23); BASOPHILS PERCENT AUTO 0 % (0-2); EOSINOPHILS PERCENT AUTO 1 % (0-6); Hematocrit 21.1 % (37.0-53.0); Hemoglobin 6.7 g/dL (13.5-17.5); IMMATURE GRAN PERCENT AUTO 2 % (0-1); LYMPHOCYTES ABSOLUTE AUTO 1.24 K/mm3 (0.84-5.20); LYMPHOCYTES PERCENT AUTO 8 % (21-46); MONOCYTES ABSOLUTE AUTO 0.48 K/mm3 (0.16-1.47); MONOCYTES PERCENT AUTO 3 % (4-13); Mean Corpuscular HGB 27.6 pg (26.0-34.0); Mean Corpuscular HGB Conc 31.8 g/dL (31.5-36.5); Mean Corpuscular Volume 87 fL (80-100); Mean Platelet Volume 10.7 fL (9.1-12.4); NEUTROPHILS ABSOLUTE AUTO 14.29 K/mm3 (1.96-9.15); NEUTROPHILS PERCENT AUTO 87 % (41-73); Platelet Count 193 K/mm3 (150-400); RDW Coefficient Variation 16.1 % (11.7-14.2); RDW Standard Deviation 51.8 fL (35.1-46.3); Red Blood Cell Count 2.43 M/mm3 (4.30-5.90); White Blood Cell Count 16.45 K/mm3 (4.00-11.30)
--- NOTE | 2022-11-14 06:23 | NUR ---
A/Ox4; CALM AND COOPERATIVE. CONSISTENT HYPOTENSION; SCHEDULED ANTI-HYPERTENSIVE MED HELD AT BEDTIME AND IVF INFUSING PER ORDERS. BEDREST; Q2 TURN. HEEL PROTECTORS IN PLACE. FOAM DRESSINGS CHANGED AND WOUND CARE COMPLETED PER ORDERS. WOODS PATENT; ROME OUTPUT. SLEEP PROMOTED. BED ALARM SET. CALL LIGHT IN REACH; ENCOURAGED TO MAKE NEEDS KNOWN.
[2022-11-14 06:30] LABS: Alanine Aminotransfer (ALT/SGP 65 U/L (12-78); Albumin/Globulin Ratio 0.2 (0.8-1.8); Alk Phos 320 U/L (50-136); Anion Gap 7 mmol/L (6-16); Aspartate Aminotrans (AST/SGOT 66 U/L (12-37); Blood Urea Nitrogen 57 mg/dL (8-24); Bun/Creatinine Ratio 16.2 (12.0-20.0); CO2, Blood 19 mmol/L (21-32); Calcium, Blood 7.2 mg/dL (8.5-10.1); Chloride, Blood 108 mmol/L (98-108); Creatinine, Blood 3.51 mg/dL (0.60-1.20); Globulin, Blood 4.9 g/dL (2.2-4.0); Glomerular Filtration Rate 18 (60-); Glucose, Blood 83 mg/dL (70-99); Potassium, Blood 4.8 mmol/L (3.5-5.5); Sodium, Blood 134 mmol/L (136-145); Total Protein, Blood 5.9 g/dL (6.4-8.2); Vancomycin, Random 26.7 ug/mL
[2022-11-14 16:27] LABS: BASOPHILS ABSOLUTE AUTO 0.06 K/mm3 (0.00-0.23); BASOPHILS PERCENT AUTO 0 % (0-2); EOSINOPHILS ABSOLUTE AUTO 0.11 K/mm3 (0.00-0.68); EOSINOPHILS PERCENT AUTO 1 % (0-6); Hematocrit 25.3 % (37.0-53.0); Hemoglobin 8.2 g/dL (13.5-17.5); IMMATURE GRAN ABSOLUTE AUTO 0.35 K/mm3 (0.00-0.10); IMMATURE GRAN PERCENT AUTO 2 % (0-1); LYMPHOCYTES ABSOLUTE AUTO 1.12 K/mm3 (0.84-5.20); LYMPHOCYTES PERCENT AUTO 6 % (21-46); MONOCYTES ABSOLUTE AUTO 0.55 K/mm3 (0.16-1.47); MONOCYTES PERCENT AUTO 3 % (4-13); Mean Corpuscular HGB 27.7 pg (26.0-34.0); Mean Corpuscular HGB Conc 32.4 g/dL (31.5-36.5); Mean Corpuscular Volume 86 fL (80-100); Mean Platelet Volume 10.2 fL (9.1-12.4); NEUTROPHILS ABSOLUTE AUTO 16.78 K/mm3 (1.96-9.15); NEUTROPHILS PERCENT AUTO 89 % (41-73); Platelet Count 225 K/mm3 (150-400); RDW Coefficient Variation 15.9 % (11.7-14.2); RDW Standard Deviation 49.5 fL (35.1-46.3); Red Blood Cell Count 2.96 M/mm3 (4.30-5.90); White Blood Cell Count 18.97 K/mm3 (4.00-11.30)
[2022-11-14 16:48] LABS: Magnesium, Blood 2.1 mg/dL (1.6-2.4)
[2022-11-14 16:53] LABS: Albumin, Blood 1.1 g/dL (3.4-5.0); Albumin/Globulin Ratio 0.2 (0.8-1.8); Bun/Creatinine Ratio 15.9 (12.0-20.0); Calcium, Blood 7.4 mg/dL (8.5-10.1); Creatinine, Blood 3.71 mg/dL (0.60-1.20); Globulin, Blood 5.4 g/dL (2.2-4.0); Phosphorus, Blood 3.1 mg/dL (2.5-4.9); Potassium, Blood 5.1 mmol/L (3.5-5.5); Total Protein, Blood 6.5 g/dL (6.4-8.2)
--- NOTE | 2022-11-14 17:43 | NUR ---
PT IS A/OX3, SELF PLACE AND FAMILY. THE PT HAS BEEN BED REST T/O THE ASHISH. PT REPOSITIONED. T/O THE DAY. THE PT RECIEVED 1 UNIT PRBC'S AND TOLERATED THE TRANSFUSION WELL. THE PT THIS AFTERNOON BECAME MORE SPASTIC WITH INVOLUNTARY UPPER EXTREMITY MOVEMENTS. DR. SWANN ASSESSED THE PT AND A HEAD CT WAS ORDERED. PT IS ON A 24HR URINE PROTIEN COLLECTION. THE PT COCCYX WOUND WAS CLEANED AND CHANGED THIS AM. PTS WAS AT THE BEDSIDE FOR MOST OF THE DAY. CALL LIGHT IN REACH. WILL CONTINUE TO MONITOR AND ASSESS FOR CHANGES
--- NOTE | 2022-11-15 02:36 | NUR ---
A/Ox1; SELF. COOPERATIVE WITH CARE. CONSISTENT HYPOTENSION; SCHEDULED ANTI-HYPERTENSIVE MED HELD AT BEDTIME AND IVF INFUSING PER ORDERS. PROVIDER CONTACTED AND ALBUMIN ORDERED / GIVEN WITH MINIMAL EFFECT; BP 78/48 (WITH HR IN 90s) S/P ADMINISTRATION. MIDODRINE 5MG ORDERED AND GIVEN; BP 82/52 (MANUALLY) APPROX 1HR S/P ADMIN. BEDREST; Q2 TURN. HEEL PROTECTORS IN PLACE. FOAM DRESSINGS CHANGED AND WOUND CARE COMPLETED PER ORDERS. WOODS PATENT; ROME, VERY LOW OUTPUT. SLEEP PROMOTED. BED ALARM SET. CALL LIGHT IN REACH; ENCOURAGED TO MAKE NEEDS KNOWN.
[2022-11-15 05:20] LABS: Hematocrit 23.8 % (37.0-53.0); Hemoglobin 7.6 g/dL (13.5-17.5); Mean Corpuscular HGB 27.6 pg (26.0-34.0); Mean Corpuscular HGB Conc 31.9 g/dL (31.5-36.5); Mean Corpuscular Volume 87 fL (80-100); Mean Platelet Volume 10.2 fL (9.1-12.4); Platelet Count 181 K/mm3 (150-400); RDW Standard Deviation 50.7 fL (35.1-46.3); Red Blood Cell Count 2.75 M/mm3 (4.30-5.90)
[2022-11-15 05:43] LABS: BAND PERCENT MAN 15 % (0-8); BASOPHILS ABSOLUTE MAN 0.11 K/mm3 (0.00-0.23); BASOPHILS PERCENT MAN 1 % (0-2); EOSINOPHILS ABSOLUTE MAN 0.34 K/mm3 (0.00-0.68); EOSINOPHILS PERCENT MAN 3 % (0-6); LYMPHOCYTES ABSOLUTE MAN 1.95 K/mm3 (0.84-5.20); LYMPHOCYTES PERCENT MAN 17 % (21-46); MONOCYTES ABSOLUTE MAN 0.57 K/mm3 (0.16-1.47); MONOCYTES PERCENT MAN 5 % (4-13); MYELOCYTE ABSOLUTE MAN 0.11 K/mm3 (0.00-0.00); MYELOCYTE PERCENT MAN 1 % (0-0); NEUTROPHILS ABSOLUTE MAN 8.28 K/mm3 (1.96-9.15); PLASMA CELL ABSOLUTE MAN 0.11 K/mm3 (0.00-0.00); PLASMA CELLS PERCENT MAN 1 % (0-0); SEG NEUTROPHILS PERCENT MAN 57 % (41-73); TOTAL CELLS COUNTED 100
[2022-11-15 05:52] LABS: Magnesium, Blood 1.8 mg/dL (1.6-2.4)
[2022-11-15 05:58] LABS: CPK Creatine Kinase 68 U/L (39-308); Uric Acid, Blood 7.8 mg/dL (3.5-7.2)
[2022-11-15 05:59] LABS: Alanine Aminotransfer (ALT/SGP 62 U/L (12-78); Albumin, Blood 1.2 g/dL (3.4-5.0); Albumin/Globulin Ratio 0.2 (0.8-1.8); Alk Phos 381 U/L (50-136); Anion Gap 7 mmol/L (6-16); Aspartate Aminotrans (AST/SGOT 64 U/L (12-37); Bilirubin, Direct 1.9 mg/dL (0.0-0.3); Bilirubin, Indirect 0.4 mg/dL (0.1-0.7); Bilirubin, Total 2.3 mg/dL (0.1-1.0); Blood Urea Nitrogen 64 mg/dL (8-24); Bun/Creatinine Ratio 16.4 (12.0-20.0); CO2, Blood 19 mmol/L (21-32); Calcium, Blood 7.3 mg/dL (8.5-10.1); Chloride, Blood 109 mmol/L (98-108); Creatinine, Blood 3.91 mg/dL (0.60-1.20); Glomerular Filtration Rate 16 (60-); Glucose, Blood 83 mg/dL (70-99); Phosphorus, Blood 3.1 mg/dL (2.5-4.9); Potassium, Blood 4.9 mmol/L (3.5-5.5); Sodium, Blood 135 mmol/L (136-145); Total Protein, Blood 6.2 g/dL (6.4-8.2)
--- NOTE | 2022-11-15 07:49 | NUR ---
NOTIFIED PT MOVING TO ICU 14
--- NOTE | 2022-11-15 08:11 | NUR ---
/RECEIVED REPORT FROM CHANDNI BELTRÁN. DISCUSSED LOW B/P. CHANDNI BELTRÁN STATES RETAKE 78/44, PRIOR TO GIVING MIDODRINE. I RETAKE NOW SHOWS 70/42 P 82, MAP 60.6. DISCUSSED WITH BARREL MAKER, REQUEST MOVE TO ICU. NOT RESPONDING TO AVAIL MEDS. CALLED RUBINA ADAMS. OKAYED MOVE TO ICU. REPORT GIVEN TO GEETA MALDONADO RN. PT TRANSPORTED TO ICU 14. BARREL MAKER CALLED PT SPOUSE.
--- NOTE | 2022-11-15 08:14 | NUR ---
Assumed care. Pt transferred to ICU at approximately 0800. Report received from medical floor RN. Pt arrive to ICU alert, oriented to self, on RA. VS stable, no acute needs at time of arrival. Continue to monitor.
--- NOTE | 2022-11-15 08:23 | NUR ---
DR. ROGEL CALL TO DR. ROGEL TO UPDATE HIM ON CONDITION OF PT, TRANSFER TO ICU AND HYPOTENSION. HE STATES HE DOES NOT BELIEVE THE DECUBITUS IS THE SOURCE OF SEPSIS AT THIS TIME, BUT THAT HE WILL EVALUATE THE WOUND LATER TODAY.
[2022-11-15 09:36] LABS: PCO2 Arterial 34.1 mmHg (35-45); pH Blood Arterial 7.35 (7.35-7.45)
[2022-11-15 14:21] LABS: Protein, Urine Quantitative 94.8 mg/dL (0.0-11.9)
--- NOTE | 2022-11-15 18:23 | NUR ---
Shift summary. Pt rested in bed throughout shift. On RA, alert, oriented to self. PICC placed this am, MISAEL, wnl. 24hr urine completed at 1335 and taken to lab. Juan catheter in place, draining to gravity. Pt status changed to PCU by Dr Schmidt. VS stable throughout shift, see assessment for further details. Will continue to monitor and report off to nightshift RN.
--- NOTE | 2022-11-15 22:18 | NUR ---
ASSUMED CARE ASSUMED CARE AT 1900. PT ALERT. PT ABLE TO SPEAK ONE-TWO WORDS AT TIMES. AT OTHERS PT APPEARS TO STRUGGLE TO SPEAK. ABLE TO SQUEEZE HANDS ON COMMAND. UNABLE TO TRACK PEN OR MOVE BLE. PT HAVING REPETITIVE MOVEMENT OF LYUDMILA AND HEAD. WILL LOOK AT NURSE BUT UNABLE TO HOLD GAZE. VSS. SR 80'S, SBP 110'S. ON RA. WOUND CARE COMPLETED AND DRSG CHANGED ON COCCYX PER ORDER. COPIOUS AMOUNT OF PURULENT DRAINAGE. PT FAILED BEDSIDE SWALLOW EVAL. EVENING PO MEDS HELD D/T ASPIRATION RISK. PT MADE NPO AT THIS TIME. 1999 CBG 69. CALL TO HOSP AND 1 AMP D5 ORDERED AND GIVEN. LANTUS HELD PER HOSP ORDER. REPEAT CBG 113. PLAN TO RECHECK CBG AT 0000. WOODS PATENT AND DRAINING TO GRAVITY.
--- NOTE | 2022-11-15 23:59 | NUR ---
CALL TO MD BELTRÁN CALLED REGARDING 2300 CBG OF 85. ORDER RECEIVED TO STOP NS, START D5W1/2NS 75ML/HR AND CBG CHECKS CHANGED TO Q6.
[2022-11-16 03:35] LABS: Hematocrit 22.8 % (37.0-53.0); Hemoglobin 7.4 g/dL (13.5-17.5); Mean Corpuscular HGB Conc 32.5 g/dL (31.5-36.5); Mean Corpuscular Volume 86 fL (80-100); Mean Platelet Volume 9.8 fL (9.1-12.4); Platelet Count 172 K/mm3 (150-400); RDW Coefficient Variation 16.2 % (11.7-14.2); RDW Standard Deviation 51.5 fL (35.1-46.3); Red Blood Cell Count 2.64 M/mm3 (4.30-5.90); White Blood Cell Count 11.66 K/mm3 (4.00-11.30)
[2022-11-16 03:58] LABS: Magnesium, Blood 2.1 mg/dL (1.6-2.4)
[2022-11-16 04:00] LABS: Alanine Aminotransfer (ALT/SGP 51 U/L (12-78); Albumin, Blood 1.2 g/dL (3.4-5.0); Albumin/Globulin Ratio 0.3 (0.8-1.8); Alk Phos 439 U/L (50-136); Anion Gap 7 mmol/L (6-16); Aspartate Aminotrans (AST/SGOT 57 U/L (12-37); Bilirubin, Total 1.7 mg/dL (0.1-1.0); Blood Urea Nitrogen 66 mg/dL (8-24); Bun/Creatinine Ratio 16.1 (12.0-20.0); CO2, Blood 19 mmol/L (21-32); Chloride, Blood 111 mmol/L (98-108); Creatinine, Blood 4.09 mg/dL (0.60-1.20); Globulin, Blood 4.7 g/dL (2.2-4.0); Glomerular Filtration Rate 15 (60-); Glucose, Blood 84 mg/dL (70-99); Phosphorus, Blood 3.8 mg/dL (2.5-4.9); Potassium, Blood 4.7 mmol/L (3.5-5.5); Sodium, Blood 137 mmol/L (136-145); Total Protein, Blood 5.9 g/dL (6.4-8.2); Vancomycin, Random 23.4 ug/mL
[2022-11-16 04:44] LABS: BAND PERCENT MAN 5 % (0-8); BASOPHILS PERCENT MAN 0 % (0-2); EOSINOPHILS PERCENT MAN 0 % (0-6); LYMPHOCYTES ABSOLUTE MAN 2.44 K/mm3 (0.84-5.20); LYMPHOCYTES PERCENT MAN 21 % (21-46); MONOCYTES ABSOLUTE MAN 0.46 K/mm3 (0.16-1.47); MONOCYTES PERCENT MAN 4 % (4-13); NEUTROPHILS ABSOLUTE MAN 8.74 K/mm3 (1.96-9.15); SEG NEUTROPHILS PERCENT MAN 70 % (41-73); TOTAL CELLS COUNTED 100
--- NOTE | 2022-11-16 05:58 | NUR ---
SHIFT SUMMARY NO ACUTE EVENTS T/O NIGHT. PT ABLE TO SPEAK ONE-TWO WORDS MORE CLEARLY THIS AM. PT CONTINUES TO HAVE CONSTANT REPETITIVE MOVEMENT OF BUE AND HEAD. PT ASLEEP 1-2 HOURS T/O NIGHT. VSS. SBP 110-120'S. SR RATE 70-80'S. ON RA W/ SPO2 GREATER THAN 90%. D5W1/2NS GTT AT 75ML. CBG 80-90'S. NS TKO. WOODS IN PLACE 275ML OUTPUT. WILL REPORT OFF TO ONCOMING NURSE.
--- NOTE | 2022-11-16 07:45 | NUR ---
Assumed care. Report received from nightshift RN. Pt resting in bed, on RA. Alert, able to answer questions with one word answers. Pt still exhibiting restless, uncontrolled movement of BUE and head. Pt denies pain, VS stable. PICC in MISAEL, WNL. Juan draining to gravity. Will continue to monitor.
--- NOTE | 2022-11-16 09:37 | NUR ---
11/16/22 0937 Michelle Gamboa PT ON ANTIBIOTICS AND RECIEVED PRIOR TO ARRIVAL TO OR.
--- NOTE | 2022-11-16 12:05 | NUR ---
PT OUT FOR SURGERY AT APPROXIMATELY 0830, RETURNED AT 1140. REPORT FROM VICE PRESIDENT EDUCATION RECEIVED. PT RESPIRATORY EFFORT LOW IN PACU, NOT WAKING UP FROM SEDATION. PT RETURNED TO ICU INTUBATED. CURRENT VENT SETTINGS: AC/VC 18/450/8/50%. NO SEDATION INFUSING AT THIS TIME. PT RESPONDS ONLY TO NOXIOUS STIMULI, NO PURPOSEFUL MOVEMENTS OBSERVED. VS STABLE, WILL CONTINUE TO MONITOR.
--- NOTE | 2022-11-16 12:34 | NUR ---
PT ARRIVED NON-RESPONSIVE, AGONAL BREATHING. NASAL TRUMPET AND NON-REBREATHER APPLIED ON ADMIT. PT VITALS STABLE AT BEGINNING. PT REMAINED NON-RESPONSIVE WITH AGONAL BREATHING, RT CONTACTED FOR BIPAP AFTER BAGGING ATTEMPTED X 5 MIN. AT 1100 RT ARRIVED AND APPLIED BIPAP. ANESTHESIA ARRIVED AT 1108 AND REMOVED BIPAP AND ATTEMPTED BAGGING PATIENT AGAIN. WITH NO RESPONSE, ANESTHESIA INTUBATED PATIENT AT 1124, BAG APPLIED WITH CO2 MONITOR, MONITORS CONNECTED FOR TRANSPORT. PT TRANSFERRED TO ICU, REPORT TO CASE FITTER GEETA MALDONADO RN. SEE SCANNED PRINTOUTS FOR VITALS DURING PACU.
[2022-11-16 13:35] LABS: PCO2 Arterial 39.5 mmHg (35-45); PO2 Arterial 84.3 mmHg (80-100); pH Blood Arterial 7.24 (7.35-7.45)
--- NOTE | 2022-11-16 18:23 | NUR ---
INTUBATION. AT APPROXIMATELY 1650 PT NOTED TO HAVE DECREASED EFFORT OF BREATHING WITH MINIMAL RESPIRATIONS. RT AND DR. NUÑEZ CALLED TO BEDSIDE. DECISION MADE TO INTUBATE. PT GIVEN 4MG VERSED AT 1717, 50MG PROPOFOL AT 1722 AND INTUBATED. SEE RT DOCUMENTATION FOR INTUBATION. VS STABLE, PT TOLERATED PROCEDURE WELL. NOTIFIED OF CHANGE IN PT CONDITION.
--- NOTE | 2022-11-16 18:46 | NUR ---
Shift summary. Pt currently on ventilator, vented via ETT. Vent settings: AC/VC 18/450/5/40%. No sedation currently infusing, PT unresponsive to stimuli. Pt went to surgery this am with Dr. Sutton, returned on ventilator from PACU, see notes. Pt extubated this afternoon with good initial presentation but declined over the rest of the afternoon with decreasing respiratory effort, decreasing mental status and increasing oxygen demands. Pt re-intubated at approximately 1725, see RT and shift notes for details. OG tube placed prior to chest Xray. Levophed started for low BP at approximately 1800, currently infusing at 4 mcg/min. Meplex in place over surgical site on coccyx, small amount of clear/red drainage noted. VS stable ATT, will report off to oncoming RN.
[2022-11-16 19:29] LABS: PCO2 Arterial 35.4 mmHg (35-45); PO2 Arterial 70.2 mmHg (80-100)
--- NOTE | 2022-11-16 22:22 | NUR ---
ASSUMED CARE ASSUMED CARE AT 1900. PT INTUBATED W/ NO SEDATION. AC/VC 18/450/5/40% RR 18-26. BICARB/D5 AT 125ML/HR. LEVO GTT INFUSING. SEE FLOWSHEET FOR TITRATIONS. VSS. SR RATE 70-80'S. SLUGGISH PUPILS W/ UPWARD GAZE. WITHDRAWS FROM NOXIOUS STIMULI ON BUE. NO RESPONSE FROM BLE. GRIMACES AND HAS REPETITIVE MOVEMENTS OF BUE/HEAD W/ ORAL CARE AND TURNS. PT CALMS W/ NO STIMULI. DOES NOT FOLLOW COMMANDS OR TRACK NURSE. OGT CLAMPED. WOODS PATENT AND DRAINING TO GRAVITY. DR NUÑEZ CALLED REGARDING PH 7.20. NO NEW ORDERS. "SARAH BETH" CALLED AND GIVEN UPDATE ON PT CONDITION.
[2022-11-17 03:55] LABS: BASOPHILS ABSOLUTE AUTO 0.02 K/mm3 (0.00-0.23); BASOPHILS PERCENT AUTO 0 % (0-2); EOSINOPHILS PERCENT AUTO 0 % (0-6); Hematocrit 22.4 % (37.0-53.0); Mean Corpuscular HGB 27.5 pg (26.0-34.0); Mean Corpuscular HGB Conc 31.3 g/dL (31.5-36.5); Mean Corpuscular Volume 88 fL (80-100); Mean Platelet Volume 10.8 fL (9.1-12.4); Platelet Count 154 K/mm3 (150-400); RDW Coefficient Variation 16.6 % (11.7-14.2); RDW Standard Deviation 53.8 fL (35.1-46.3); Red Blood Cell Count 2.55 M/mm3 (4.30-5.90); White Blood Cell Count 11.31 K/mm3 (4.00-11.30)
[2022-11-17 04:15] LABS: IMMATURE GRAN ABSOLUTE AUTO 0.33 K/mm3 (0.00-0.10); IMMATURE GRAN PERCENT AUTO 3 % (0-1); LYMPHOCYTES ABSOLUTE AUTO 1.02 K/mm3 (0.84-5.20); LYMPHOCYTES PERCENT AUTO 9 % (21-46); MONOCYTES ABSOLUTE AUTO 0.15 K/mm3 (0.16-1.47); MONOCYTES PERCENT AUTO 1 % (4-13); NEUTROPHILS ABSOLUTE AUTO 9.79 K/mm3 (1.96-9.15); NEUTROPHILS PERCENT AUTO 87 % (41-73)
[2022-11-17 04:59] LABS: Alanine Aminotransfer (ALT/SGP 43 U/L (12-78); Albumin, Blood 1.4 g/dL (3.4-5.0); Albumin/Globulin Ratio 0.3 (0.8-1.8); Alk Phos 402 U/L (50-136); Anion Gap 9 mmol/L (6-16); Aspartate Aminotrans (AST/SGOT 39 U/L (12-37); Bilirubin, Total 1.6 mg/dL (0.1-1.0); Blood Urea Nitrogen 75 mg/dL (8-24); Bun/Creatinine Ratio 17.8 (12.0-20.0); CO2, Blood 16 mmol/L (21-32); Calcium, Blood 6.6 mg/dL (8.5-10.1); Chloride, Blood 109 mmol/L (98-108); Creatinine, Blood 4.22 mg/dL (0.60-1.20); Globulin, Blood 4.4 g/dL (2.2-4.0); Glomerular Filtration Rate 14 (60-); Glucose, Blood 237 mg/dL (70-99); Magnesium, Blood 2.4 mg/dL (1.6-2.4); Phosphorus, Blood 6.4 mg/dL (2.5-4.9); Potassium, Blood 5.7 mmol/L (3.5-5.5); Sodium, Blood 134 mmol/L (136-145); Total Protein, Blood 5.8 g/dL (6.4-8.2); Vancomycin, Random 20.4 ug/mL
[2022-11-17 05:09] LABS: Source, Urine Foley catheter
[2022-11-17 05:19] LABS: Bilirubin, Urine Neg (Neg); Blood, Urine 4+ (Neg); Color, Urine Yellow (P-Yellow); Glucose Qualitative, Urine Neg (Neg); Ketones, Urine Neg (Neg); Leukocyte Esterase, Urine 2+ (Neg); Nitrite, Urine Neg (Neg); Protein, Urine 2+ (Neg); Urobilinogen, Urine NORM (Normal)
[2022-11-17 05:49] LABS: Appearance, Urine Hazy (Clear)
[2022-11-17 05:50] LABS: Bacteria Few /hpf; Squamous Epithelial Cells Few /hpf (Few); Transitional Epithelial Cells Few /hpf (0-Rare)
--- NOTE | 2022-11-17 06:12 | NUR ---
SHIFT SUMMARY PT REMAINS INTUBATED AND SEDATED. PT VERY AGITATED APPROX 0200. PT FIGHTING VENT, AND HAVING REPETITIVE MOVEMENT OF HEAD/BUE. PT NOT FOLLOWING COMMANDS AT THAT TIME AND NO PURPOSEFUL MOVEMENT NOTED. PROPOFOL GTT STARTED AT 15MCG/KG/MIN. VSS, PT HYPOTHERMIC AND BEAR HUGGER APPLIED TO PT. SB RATE 51-60. EKG ORDERED AND COMPLETED. ATTEMPTED TO PLACE A TEMP WOODS FOR CORE TEMP. UNABLE TO PASS PROSTATE. COUDE CATH PLACED INSTEAD. MINIMAL OUTPUT T/O SHIFT. WOUND CARE COMPLETED AND NEW PICTURE TAKEN. OGT CLAMPED. DR WEISS CALLED REGARDING HGB, AND CHEM PANEL. ORDER TO INCREASE BUMEX TO 4MG BID AFTER ALBUMIN.
--- NOTE | 2022-11-17 08:00 | NUR ---
PT REMAINS INTUBATED AND SEDATED ON PROPOFOL @ 15 MCG/KG/MIN. PUPILS 5 MM AND SLUGGISH. PT OPENS EYES TO VOICE, BUT DOES NOT FOLLOW COMMANDS. PT DOES NOT MOVE LOWER EXTREMITIES AT BASELINE-PER HIS . PT GRIMACES AND MOVES HIS HEAD BACK AND FORTH IN A VERY SPASTIC/JERKING MANNER WITH ORAL CARE/NOXIOUS STIMULI. PT ALSO MOVES UPPER EXTREMITIES TOWARDS ETT/GROSS MOTOR MOVEMENT NOTED ONLY. TEMP 96.[address] ECG SHOWS SR WITH RATE 70'S. PROLONGED QT NOTED. SBP 90-110'S. LOWER EXT 3+ EDEMA, SCROTUM & PENIS WITH DEPENDENT EDEMA, AND UPPER EXTREMITES WITH 1-2+ EDEMA NOTED. DP/PT PULSES FAINT. LUNGS DIMINISHED IN THE BASES. ETT TO VENT:AC 18, TV 450, PEEP 5, FIO2 40%-SATS>90%. MINIMAL ETT SECRETIONS. OGT CLAMPED WITH BILIOUS DRAINAGE NOTED. ABDOMEN DISTENDED AND SEMI-FIRM WITH HYPOACTIVE BT'S X 4. WOODS TO BSD WITH SCANT AMOUNT OF TEA COLORED URINE TO UROMETER. SCHEDULED ALBUMIN AND BUMEX GIVEN-SEE EMAR. FOAM DRESSING TO COCCYX, ELBOWS, AND HEELS C/D/I. PT SPOUSE SARAH BETH AT BEDSIDE. UPDATE GIVEN. PALLIATIVE CARE CONSULT PLACED.
--- NOTE | 2022-11-17 08:20 | NUR ---
DR. LIU AT BEDSIDE-FULL UPDATE GIVEN. PROPOFOL ON SB. VENT CHANGED TO PS 10/5-FIO2 40%
--- NOTE | 2022-11-17 09:15 | NUR ---
PT EYES OPEN, BUT HE DOES NOT APPEAR TO BE TRACKING. PT MOVING HIS HEAD BACK AND FORTH ON THE PILLOW AND HAS DISCONNECTED THE VENTILATOR SEVERAL TIMES. PT GRIMACING AND PULLING ON RESTRAINTS. RR 28, SATS>90%. DR. LIU AND FARSHAD, RT AT BEDSIDE. VENT CHANGED TO AC/VC 18, TV 450, PEEP 5, FIO2 40%.
--- NOTE | 2022-11-17 09:45 | NUR ---
PT APPEARS RESTLESS AND AGITATED. PROPOFOL DRIP RESUMED @ 20 MCG/KG/MIN.
--- NOTE | 2022-11-17 09:55 | NUR ---
PT GRIMACING AND RESTLESS DESPITE PROPOFOL DRIP @ 20 MCG/KG/MIN. PT MED WITH FENTANYL 75 MCG IVP X 1. PARTIAL ECHO HAS BEEN COMPLETED. PLAN FOR CT OF THE HEAD LATER TODAY. PALLIATIVE CARE RN-KIM SPOKE WITH PT SPOUSE SARAH BETH. PLAN TO DISCUSS PLAN OF CARE FURTHER-PENDING RESULTS OF CT SCAN.
--- NOTE | 2022-11-17 12:00 | NUR ---
PT RESTS QUIETLY WHEN NOT DISTURBED ON PROPOFOL @ 20 MCG/KG/MIN. PT GRIMACING AND PULLING ON RESTRAINTS WITH ORAL CARE. MED WITH FENTANYL 75 MCG IVP X 1, THEN SHAMPOO, ORAL CARE, BED BATH, LINEN CHANGE, AND WOUND CARE COMPLETED. PT TOLERATED WELL. TEMP 96.5-WARMER REMAINS IN PLACE. SBP 90'S-100'S. STILL NO ETT SECRETIONS. PT MAINTAINS SATS> 90% ON FIO2 40% RR 18-24. COCCYX WOUND CARE COMPLETED PER WOUND CARE ORDERS. NO CHANGE FROM WOUND PHOTO DONE ON 11/16/22. THE GLUTEAL CLEFT WAS WHEN WOUND DEBRIDED ON 11/16/22. NEW FOAM DRESSING PLACED AND PT REPOSITIONED TO COMFORT ON RIGHT SIDE.
--- NOTE | 2022-11-17 13:25 | NUR ---
EVERT RN FROM WOUND CARE GIVEN UPDATE. WILL RE-ASSESS NEED FOR NEUROSCIENTIST/ PENDING CT RESULTS AND DISCUSSION WITH PALLIATIVE CARE, DR. DOZIER, AND DR. LIU.
--- NOTE | 2022-11-17 16:00 | NUR ---
CT SCAN OF HEAD COMPLETE. PROPOFOL TITRATED UP TO 35 MCG/KG/MIN FOR CT SCAN. PT TOLERATED WELL. PT RESTING QUIETLY ON VENT WITH PROPOFOL @ 25 MCG/KG/MIN. PT FAMILY AT BEDSIDE. MEJIA LIU AND TASIA AT BEDSIDE. KIM FROM PALLIATIVE CARE THERE WELL-DISCUSSING PLAN OF CARE/POSSIBILE COMFORT CARE.
--- NOTE | 2022-11-17 16:18 | NUR ---
Met with pt's Nely at bedside this am. Supportive visit for Nely, she was tearful, expressed guilt and regret for "not knowing how sick he was". This morning, ordered a CT of the head. The results showed no change, and both Dr. Black and Dr. Rivera spoke to with this RN. Both pt's and their son were present for this meeting. Due to the ongoing issues, Nely elects to withdraw care for the patient, as she states she is certain he would not want to live with parylized legs, or with brain damage or any other issue that would leave him bedbound or dependent. Orders placed, and bedside JEREL Chen is aware. Palliative care will remain available.
--- NOTE | 2022-11-17 16:45 | NUR ---
PT MADE COMFORT CARE STATUS. RESTRAINTS AND PROPOFOL OFF @ 1630. PT MED WITH DILAUDID 2 MG IVP X 1 AND ATIVAN 2 MG IVP X1-THEN ATROPINE DROPS GIVEN VIA ETT FOR SECRETIONS AND PT EXTUBATED TO RA. PT FAMILY AT BEDSIDE.
--- NOTE | 2022-11-17 17:36 | NUR ---
Patient is extubated minutes before I arrive in pt's rm. Family is bedside and so I conduct a life review. Family talk at length about pt's life, gifts, generosity, careers amd belief systems. I provide therapeutic listening, encouragement, anticipitory grief support and end of life prayer. Family responded well and showed signs of being comforted.
--- NOTE | 2022-11-17 18:30 | NUR ---
PT WITH FAMILY AT BEDSIDE. FINAL DISCHARGE COMPLETED.
[2022-11-18 13:10] LABS: IMMUNOGLOBULIN A, QN, SERUM 639 mg/dL (61-437); IMMUNOGLOBULIN G, QN, SERUM 2143 mg/dL (603-1613); IMMUNOGLOBULIN M, QN, SERUM 28 mg/dL (20-172)
[2022-11-18 18:10] LABS: ANTIMYELOPEROXIDASE (MPO) ABS <0.2 units (0.0-0.9); ANTIPROTEINASE 3 (PR-3) ABS <0.2 units (0.0-0.9); ATYPICAL PANCA <1:20 titer (Neg:<1:20); CYTOPLASMIC (C-ANCA) <1:20 titer (Neg:<1:20); PERINUCLEAR (P-ANCA) <1:20 titer (Neg:<1:20)
[2022-11-19 09:13] LABS: M-SPIKE, % Comment: % (Not Observed); PROTEIN,TOTAL,URINE 56.2 mg/dL (Not Estab.)
[2022-11-19 12:08] LABS: IMMUNOGLOBULIN A, QN, SERUM 552 mg/dL (61-437); IMMUNOGLOBULIN G, QN, SERUM 1953 mg/dL (603-1613); IMMUNOGLOBULIN M, QN, SERUM 26 mg/dL (20-172)
[2022-11-19 17:09] LABS: ANTIMYELOPEROXIDASE (MPO) ABS <0.2 units (0.0-0.9); ANTIPROTEINASE 3 (PR-3) ABS <0.2 units (0.0-0.9); ATYPICAL PANCA <1:20 titer (Neg:<1:20); CYTOPLASMIC (C-ANCA) <1:20 titer (Neg:<1:20); PERINUCLEAR (P-ANCA) <1:20 titer (Neg:<1:20)
== END 2022-11-17 21:56 | DRG 853 ==
LOC: ER 12:54 → ICUW 15:59 → MEDS 15:59 → ERHOLD 15:59 → MEDS 19:39 → ICUW 11-15 07:54
PROVIDERS: Emergency Medicine; Internal Medicine; Internal Medicine Critical Care Medicine; Internal Medicine Nephrology; Pharmacist; Student in an Organized Health Care Education/Training Program; ADMIT Family Medicine
PROC: 3E03329 Introduction of Other Anti-infective into Peripheral Vein, Percutaneous Approach (ICD-10-PCS; 2022-11-06)
PROC: 0T9B70Z Drainage of Bladder with Drainage Device, Via Natural or Artificial Opening (ICD-10-PCS; 2022-11-06)
PROC: 30233N1 Transfusion of Nonautologous Red Blood Cells into Peripheral Vein, Percutaneous Approach (ICD-10-PCS; principal; 2022-11-11)
PROC: 4A133R1 Monitoring of Arterial Saturation, Peripheral, Percutaneous Approach (ICD-10-PCS; 2022-11-15)
PROC: 02HV33Z Insertion of Infusion Device into Superior Vena Cava, Percutaneous Approach (ICD-10-PCS; 2022-11-16)
PROC: 0DH67UZ Insertion of Feeding Device into Stomach, Via Natural or Artificial Opening (ICD-10-PCS; 2022-11-16)
PROC: 3E033XZ Introduction of Vasopressor into Peripheral Vein, Percutaneous Approach (ICD-10-PCS; 2022-11-16)
PROC: 5A09357 Assistance with Respiratory Ventilation, Less than 24 Consecutive Hours, Continuous Positive Airway Pressure (ICD-10-PCS; 2022-11-16)
PROC: 5A1935Z Respiratory Ventilation, Less than 24 Consecutive Hours (ICD-10-PCS; 2022-11-16)
PROC: 0BH17EZ Insertion of Endotracheal Airway into Trachea, Via Natural or Artificial Opening (ICD-10-PCS; 2022-11-16)
PROC: 0KBN0ZZ Excision of Right Hip Muscle, Open Approach (ICD-10-PCS; 2022-11-16)
PROC: 0KBP0ZZ Excision of Left Hip Muscle, Open Approach (ICD-10-PCS; 2022-11-16)
PROC: 3E0G76Z Introduction of Nutritional Substance into Upper GI, Via Natural or Artificial Opening (ICD-10-PCS; 2022-11-17)
DX: A41.4 Sepsis due to anaerobes (principal); G92.8 Other toxic encephalopathy; L89.154 Pressure ulcer of sacral region, stage 4; J18.9 Pneumonia, unspecified organism; R65.21 Severe sepsis with septic shock; N17.0 Acute kidney failure with tubular necrosis; J96.01 Acute respiratory failure with hypoxia; T83.511A Infection and inflammatory reaction due to indwelling urethral catheter, initial encounter; M46.26 Osteomyelitis of vertebra, lumbar region; E44.0 Moderate protein-calorie malnutrition; E87.1 Hypo-osmolality and hyponatremia; Z99.11 Dependence on respirator [ventilator] status; E87.4 Mixed disorder of acid-base balance; N39.0 Urinary tract infection, site not specified; I96 Gangrene, not elsewhere classified; E11.52 Type 2 diabetes mellitus with diabetic peripheral angiopathy with gangrene; Z51.5 Encounter for palliative care; L89.620 Pressure ulcer of left heel, unstageable; N40.0 Benign prostatic hyperplasia without lower urinary tract symptoms; M19.90 Unspecified osteoarthritis, unspecified site; F41.9 Anxiety disorder, unspecified; M79.7 Fibromyalgia; G25.81 Restless legs syndrome; F12.10 Cannabis abuse, uncomplicated; N18.9 Chronic kidney disease, unspecified; E11.22 Type 2 diabetes mellitus with diabetic chronic kidney disease; I12.9 Hypertensive chronic kidney disease with stage 1 through stage 4 chronic kidney disease, or unspecified chronic kidney disease; E87.70 Fluid overload, unspecified; E88.09 Other disorders of plasma-protein metabolism, not elsewhere classified; R94.5 Abnormal results of liver function studies; D89.2 Hypergammaglobulinemia, unspecified; E87.5 Hyperkalemia; E78.00 Pure hypercholesterolemia, unspecified; G47.33 Obstructive sleep apnea (adult) (pediatric); D63.1 Anemia in chronic kidney disease; Z79.4 Long term (current) use of insulin; M54.40 Lumbago with sciatica, unspecified side; G89.29 Other chronic pain; R91.1 Solitary pulmonary nodule; D69.6 Thrombocytopenia, unspecified; E80.6 Other disorders of bilirubin metabolism; Z20.822 Contact with and (suspected) exposure to COVID-19; Y84.6 Urinary catheterization as the cause of abnormal reaction of the patient, or of later complication, without mention of misadventure at the time of the procedure; Z79.2 Long term (current) use of antibiotics; Z98.1 Arthrodesis status; Z98.890 Other specified postprocedural states; Z87.891 Personal history of nicotine dependence; Z88.0 Allergy status to penicillin; Z88.5 Allergy status to narcotic agent; Z79.899 Other long term (current) drug therapy; Z68.33 Body mass index [BMI] 33.0-33.9, adult; Z79.84 Long term (current) use of oral hypoglycemic drugs; Z79.891 Long term (current) use of opiate analgesic; Z88.8 Allergy status to other drugs, medicaments and biological substances; Z91.040 Latex allergy status; Z90.49 Acquired absence of other specified parts of digestive tract; Z78.1 Physical restraint status
CPT/HCPCS: 31500; 36415; 36430; 36569; 36600; 51702; 51703; 70450; 71045; 71046; 71260; 72148; 72158; 74176; 80053; 80069; 80202; 81001; 81050; 82248; 82274; 82533; 82550; 82570; 82803; 82947; 83516; 83520; 83605; 83735; 84100; 84156; 84166; 84300; 84443; 84540; 84550; 85025; 86037; 86038; 86334; 86850; 86900; 86901; 86923; 87040; 87077; 87086; 87103; 87186; 87205; 93005; 93010; 93308; 93321; 94002; 94003; 94660; 96360-59; 97110; 97162; 97166; 97535; 99285-25; A9270; A9579; C1751; C9113; J0692; J1100; J1170; J1815; J2060; J2185; J2250; J2405; J2704; J2710; J3010; J3370; J7030; J7040; J7042; J7050; J7060; J7070; J7799; P9016; P9047; Q9967; U0004